=== PATIENT | male | born 1940 | race Caucasian/White ===

== ENCOUNTER 2017-03-25 15:55 | Inpatient (IN) | payer MEDICARE, SELFPAY ==
[2017-03-25] VITALS (9 sets, daily range): BP systolic 135–142; BP diastolic 56–69; PULSE 57–65; RESP 18–26; TEMP 36.8–38.4; O2SAT 90–98; BMI 25.0; BMI 23.2
--- NOTE | 2017-03-25 16:25 | RAD_ITS ---
STUDY: X-RAY CHEST REASON FOR EXAM: Male, 76 years old. fever, cough TECHNIQUE: Single frontal view of the chest. COMPARISON: December 25, 2012 FINDINGS: Chronic appearing increased interstitial lung markings. There are multiple median sternotomy wires. There is no demonstrated pleural abnormality. Enlarged heart size. Normal mediastinum and teresa. Normal visualized pulmonary arteries. There is atherosclerotic calcification of the aortic arch with tortuosity. There are diffuse degenerative changes of the visualized thoracic spine. There is degenerative osteoarthritis of the bilateral shoulders. There is no demonstrated abnormality of the visualized soft tissue structures of the upper abdomen. RAD/Chest 1 View (Portable) IMPRESSION: There are no acute findings. Electronically Signed: David Bustillos MD at 16:58 EST , Service support ,
--- NOTE | 2017-03-25 16:26 | EKG12_ITS ---
Test Reason : Blood Pressure : / mmHG Vent. Rate : 066 BPM Atrial Rate : 066 BPM P-R Int : 132 ms QRS Dur : 092 ms QT Int : 438 ms P-R-T Axes : -08 050 022 degrees QTc Int : 459 ms Normal sinus rhythm Normal ECG Confirmed by DAWIT CARLOS, TREASURE ([id number]), continuity editor AMADEO RODRIGUEZ ([id number] on 03/28/2017 4:12:51 PM Referred By: VIOLET Confirmed By:TREASURE PASTOR MD
[2017-03-25] MEDS: 0.9% Normal Saline 1,000 ML 150 ML IV (16:33)
[2017-03-25] MEDS: Ibuprofen 400 MG Tablet 800 MG PO (16:33)
[2017-03-25] MEDS: 0.9% Normal Saline 1,000 ML 1000 ML IV (16:33)
[2017-03-25 16:48] LABS: International Normalized Ratio 1.1; Prothrombin Time (Protime)PT. 13.7 SECONDS (11.7-14.9)
[2017-03-25 16:49] LABS: Absolute Lymphocyte Count 0.42 X10^3/ul (0.83-4.51); Absolute Neutrophil Count 6.4 X10^3/uL (2.0-7.7); Hematocrit 39.2 % (40-54); Hemoglobin 13.1 g/dl (13.0-16.5); Lymphocyte # 0.42 X10^3/ul (4.0); Lymphocyte % 5.6 % (19-41); Mean Corp Hgb Conc 33.4 g/gl (32-36); Mean Corpuscular Hgb 31.8 pg (27.0-32.0); Mean Corpuscular Volume 95.1 fL (80-94); Mean Platelet Vol. 10.6 fl (6.2-12.0); Monocyte# 0.71 X10^3/uL; Monocyte% 9.5 % (0-10); Neutrophil # 6.37 X10^3/uL (2.7-7.7); Neutrophil % 84.8 % (47-70); Partial Thromboplast Time 34.8 Seconds (24.1-36.2); Platelet Count 80 K/mm3 (150-450); RBC Distribution Width CV 13.1 % (11.6-14.6); RBC Distribution Width SD 45.8 fl (35.1-43.9); Red Blood Count 4.12 M/mm3 (4.6-6.2); White Blood Count 7.5 K/mm3 (4.4-11.0)
[2017-03-25 16:53] LABS: Differential Indicated SCAN CRITERIA MET; Lactic Acid 0.7 mmol/L (0.4-2.0); POSITIVE COUNT NO; POSITIVE DIFFERENTIAL YES; POSITIVE MORPHOLOGY NO
[2017-03-25 16:55] LABS: ALB/GLOB Ratio 0.9 RATIO (0.9-2.4); AST(SGOT) 62 U/L (15-37); Alanine Aminotransfer ALT/SGPT 35 U/L (12-78); Albumin, Serum 2.7 g/dL (3.4-5.0); Alkaline Phosphatase 44 U/L (45-117); Anion Gap 7 (5-15); BUN 25 mg/dL (7-18); BUN/Creat Ratio 36.1 RATIO (10-20); Calcium,Total 7.4 mg/dL (8.5-10.1); Chloride 108 mmol/L (98-107); Creatinine, Serum 0.69 mg/dL (0.70-1.30); EST Glomerular Filtration Rate 118 mL/min (>60); Est Glom Filt Rate - Afr Amer 143 mL/min (>60); Glucose 107 mg/dL (70-110); Lipase 67 U/L (73-393); Potassium 3.7 mmol/L (3.5-5.1); Protein, Total 5.7 g/dL (6.4-8.2); Sodium Level 140 mmol/L (136-145)
--- NOTE | 2017-03-25 17:27 | PCM.HP.STD ---
Problem List (1) Suspected Viral Influenza Status: Acute (2) CAD (coronary artery disease) Status: Chronic Qualifiers: Coronary Disease-Associated Artery/Lesion type: unspecified vessel or lesion type [place] vs. transplanted heart: unspecified whether [place] or transplanted heart Associated angina: angina presence unspecified Qualified Code(s): I25.10 - Atherosclerotic heart disease of [place] coronary artery without angina pectoris (3) CABG 2006 Status: Chronic Comment: CABG x 5, 1 graft failure. (4) HTN (hypertension) Status: Chronic Qualifiers: Hypertension type: essential hypertension Qualified Code(s): I10 - Essential (primary) hypertension (5) Hyperlipemia Status: Chronic Qualifiers: Hyperlipidemia type: unspecified Qualified Code(s): E78.5 - Hyperlipidemia, unspecified History of Present Illness Date of Admission: 03/25/17 Chief Complaint: Cough, congestion, rhinorrhea, dyspnea, fever, chills. The patient is a 76 y/o M w/ PMHx: Parkinson's disease, HTN, HLD, CAD s/p CABG x 5 with single graft failure hx who presents to the [facility] ED on 03/25/17 with history of ongoing, progressively worsening mildly productive cough, dyspnea, congestion, rhinorrhea, sore throat, myalgias and arthralgias with subjective fever and chills x ~ 1 week. He has become progressively more weak and debilitated with unable to assist in caring for him safely at home. In the ED work-up included T 101.2, HR 60s, BP 142/64, RR 18, 95% on 2L NC, CBC w/ WBC 7.5, Hgb 13.1, Plts 80 without marked shift, normal coags, BMP w/ Chl 108, BUN/Cr 25/0.69, LA 0.7, trop 0.06, CXR without acute process, influenza rapid negative but pending PCR respiratory viral panel given high suspicion upon ED presentation. In the ED patient administered NS, motrin and duoneb. Past Medical History Past Medical History (Chronic Problems): Chronic Problems CAD (coronary artery disease) (Chronic) CABG 2007 (Chronic) CABG x 5, 1 graft failure. HTN (hypertension) (Chronic) Hyperlipemia (Chronic) Allergies atorvastatin calcium [From Lipitor] Allergy (Severe, Verified 03/25/17 16:00) Pain in joints Sulfa (Sulfonamide Antibiotics) Allergy (Severe, Verified 03/25/17 16:00) Rash ampicillin Allergy (Verified 03/25/17 16:00) Rash SULFA Allergy (Uncoded 03/25/17 16:00) Rash Home Medications: Ambulatory Orders Medication Instructions Recorded Acetaminophen [Tylenol Tablet] 325 mg PO DAILY 12/25/12 Aspirin E.C. [Ecotrin] 81 mg PO DAILY 12/25/12 Latanoprost 0.005% [Xalatan 1 drop EACHEYE QHS PRN 12/25/12 Opthalmic] Multivit-Min/FA/Lycopene/Lut 1 tab PO DAILY 12/25/12 [Centrum Silver Tablet] Carbidopa/Levodopa [Sinemet 03/25/17] Surgical History: adenoidectomy, coronary bypass surgery - X5, herniorrhaphy, tonsillectomy, - - Eye surgery for glaucoma, laser surgery. Psychiatric History: No pertinent psych hx Lives: Spouse/ Significant Other, With Family Smoking Status: Former smoker - Tobacco cigarette usage in college, quit 60 years prior. Tobacco Use: Non-smoker Alcohol: Occasional Drugs: None - *Family History Maternal History Items: Heart Disease - Mother w/ history of CHF. Paternal History Items: - - Father with history of parkinson's disease as well as CAD s/p CABG. Review of Systems Constitutional: Reports: Anorexia, Chills, Fever, Malaise, Weakness, Fatigue. Denies: Weight Change HEENT: Reports: Nasal Congestion, Post Nasal Drip, Sinus Congestion, Sinus Drainage, Sore Throat. Denies: Head Aches Cardiovascular: Denies: Chest Pain, Palpitations Respiratory: Reports: Cough, Shortness of Breath, Shortness of breath at rest, Shortness of breath upon exertion, Sputum production Gastrointestinal: Denies: Abdominal Pain, Nausea, Vomiting Genitourinary: Denies: Dysuria Musculoskeletal: Denies: Joint Pain, Joint Tenderness Skin: Denies: Rash, Wounds Neurological: Reports: Balance problems - Parkinson's disease.. Denies: Focal weakness, Numbness, Tingling Psychiatric: Denies: Anxiety, Depression, Homicidal Ideations, Suicidal Ideations Hematologic/ Lymphatic: Denies: Easy Bruising, Easy Bleeding VTE Information - Inpt Only VTE Present on Admission: No VTE Mechan Device Prophylaxis: SCD's VTE Pharm Prophylaxis ordered?: Yes Patient Problems: Active and Suspected Problems Suspected Viral Influenza (Acute) Subjective: Seated upright in the ED bed, ill appearing, fatigued, flushed. Objective: Physical Examination: General: awake, alert, oriented x 3 and cooperative, seated upright in the ED bed, fatigued, ill appearing. Skin: normal color, turgor, no icterus, cyanosis. HEENT: AT/NC, EOMI, PERRLA, dry MM, no carotid bruits or JVD noted. Lungs: Diffusely coarse, > mid to bases BL, diminished, occasional expiratory wheeze. Heart: Regular rate and rhythm; no gallop, rub audible. Abdomen: soft, NTTP, ND, normal BS, no HSM. Extremities: no cyanosis, clubbing, or edema. Neurological: patient awake, alert, oriented x 3; cognitive function intact; pupils equally reactive to light and accomodation; cranial nerves II-XII grossly normal, moving all 4 extremities, pill rolling tremor present, strength severely globally decreased. Psychiatric: affect appears flat, fatigued, no acute evidence of depressive or anxiety feelings. - Physical Exam Vital Signs Temp Pulse Resp BP Pulse Ox 101.2 F H 60 18 142/64 H 95 03/25/17 15:57 03/25/17 17:05 03/25/17 17:05 03/25/17 17:05 03/25/17 17:05 Oxygen Flow Rate 2 Oxygen Delivery Method Nasal Cannula Weight: 165 lb Body Mass Index (BMI) 25.0 Microbiology Past 72 Hours 03/25/17 16:45 Influenza Types A,B Direct FA (SERINA) - Final Mucosa - Nose Laboratory Tests Past 24 Hrs 03/25/17 03/25/17 03/25/17 16:15 16:15 16:15 WBC 7.5 RBC 4.12 L Hgb 13.1 Hct 39.2 L MCV 95.1 H MCH 31.8 MCHC 33.4 RDW 13.1 RDW Differential 45.8 H Plt Count 80 L MPV 10.6 Immature Gran % (Auto) 0.100 Neut % (Auto) 84.8 H Lymph % (Auto) 5.6 L [place] % (Auto) 9.5 Eos % (Auto) 0.0 Baso % (Auto) 0.0 Absolute Neuts (auto) 6.4 Absolute Lymphs (auto) 0.42 L Total Counted Not Reportable Differential Comment PT 13.7 INR 1.1 APTT 34.8 Sodium 140 Potassium 3.7 Chloride 108 H Carbon Dioxide 25.0 Anion Gap 7 BUN 25 H Creatinine 0.69 L Estim Creat Clear Calc 60.80 Est GFR (MDRD) Af Amer 143 Est GFR (MDRD) Non-Af 118 BUN/Creatinine Ratio 36.1 H Glucose 107 Lactic Acid Calcium 7.4 L Total Bilirubin 0.60 AST 62 H ALT 35 Alkaline Phosphatase 44 L Troponin I 0.06 Total Protein 5.7 L Albumin 2.7 L Globulin 3.0 Albumin/Globulin Ratio 0.9 Lipase 67 L 03/25/17 16:15 WBC RBC Hgb Hct MCV MCH MCHC RDW RDW Differential Plt Count MPV Immature Gran % (Auto) Neut % (Auto) Lymph % (Auto) [place] % (Auto) Eos % (Auto) Baso % (Auto) Absolute Neuts (auto) Absolute Lymphs (auto) Total Counted Differential Comment PT INR APTT Sodium Potassium Chloride Carbon Dioxide Anion Gap BUN Creatinine Estim Creat Clear Calc Est GFR (MDRD) Af Amer Est GFR (MDRD) Non-Af BUN/Creatinine Ratio Glucose Lactic Acid 0.7 Calcium Total Bilirubin AST ALT Alkaline Phosphatase Troponin I Total Protein Albumin Globulin Albumin/Globulin Ratio Lipase Assessment/Plan Active and Suspected Problems Suspected Viral Influenza (Acute) The patient is a 76 y/o M w/ PMHx: Parkinson's disease, HTN, HLD, CAD s/p CABG x 5 with single graft failure hx who presents to the [facility] ED on 03/25/17 with history of ongoing, progressively worsening mildly productive cough, dyspnea, congestion, rhinorrhea, sore throat, myalgias and arthralgias with subjective fever and chills x ~ 1 week. He has become progressively more weak and debilitated with unable to assist in caring for him safely at home. (1) Suspected Viral Influenza w/ ? Post Viral Clinical PNA: CXR in the ED w/ no acute findings but examination severe, coarse, apparent flu-like illness. Will admit to [facility], maintain on oxygen with wean as tolerated to room air, continue ATC duonebs, PRN albuterol, given severity of examination and possible clinical PNA, will initiate Rocephin and Azithromycin, HOB, IS parameters w/ pending sputum cultures and urine antigens. Will request Bld cx x 2. UA requested, pending. PT, OT, CM for discharge planning. As noted, will hydrate and will repeat CXR in AM. (2) Parkinson's disease: Continue home sinemet regimen, fall precautions, PT and OT for discharge planning. (3) Hypertension: Not on regimen, BP mildly elevated in the ED, trend, add regimen if needed, PRN hydralazine. (4) Hyperlipidemia: Statin allergy. (5) CAD: s/p CABG x 5 with single graft failure hx, maintain on ASA, statin allergy, not on BB. (6) DVT Prophylaxis: SCDs, heparin. (7) CODE status: Discussed CODE status at length including difference between FULL code, DNR-CCA and DNR-CC status. He notes he has a living will which specifies specific situations, including following aggressive measures thus for now will place as FULL CODE. Advanced Care Planning Face to Face Time: 17 minutes. Code Visit Inpatient E&M: 31223 Init Hosp L3 Procedures: 94708 Advncd Care Plan 30 Min
[2017-03-25 17:36] LABS: Bacteria 0 SEEN /hpf (None Seen); Mucous, Urine 0 SEEN /hpf (<or=2+); Squamous Epithelial Cells - UA 0 SEEN /hpf (0-5); White Blood Cells 0 SEEN /hpf (0-5)
--- NOTE | 2017-03-25 17:37 | HP.PCM_ITS ---
Problem List (1) Suspected Viral Influenza Status: Acute (2) CAD (coronary artery disease) Status: Chronic Qualifiers: Coronary Disease-Associated Artery/Lesion type: unspecified vessel or lesion type [place] vs. transplanted heart: unspecified whether [place] or transplanted heart Associated angina: angina presence unspecified Qualified Code(s): I25.10 - Atherosclerotic heart disease of [place] coronary artery without angina pectoris (3) CABG 2006 Status: Chronic Comment: CABG x 5, 1 graft failure. (4) HTN (hypertension) Status: Chronic Qualifiers: Hypertension type: essential hypertension Qualified Code(s): I10 - Essential (primary) hypertension (5) Hyperlipemia Status: Chronic Qualifiers: Hyperlipidemia type: unspecified Qualified Code(s): E78.5 - Hyperlipidemia , unspecified History of Present Illness Date of Admission: 03/25/17 Chief Complaint: Cough, congestion, rhinorrhea, dyspnea, fever, chills. The patient is a 76 y/o M w/ PMHx: Parkinson's disease, HTN, HLD, CAD s/p CABG x 5 with single graft failure hx who presents to the [facility] ED on 03/25/17 with history of ongoing, progressively worsening mildly productive cough, dyspnea, congestion, rhinorrhea, sore throat, myalgias and arthralgias with subjective fever and chills x ~ 1 week. He has become progressively more weak and debilitated with unable to assist in caring for him safely at home. In the ED work-up included T 101.2, HR 60s, BP 142/64, RR 18, 95% on 2L NC, CBC w/ WBC 7.5, Hgb 13.1, Plts 80 without marked shift, normal coags, BMP w/ Chl 108, BUN/ Cr 25/0.69, LA 0.7, trop 0.06, CXR without acute process, influenza rapid negative but pending PCR respiratory viral panel given high suspicion upon ED presentation. In the ED patient administered NS, motrin and duoneb. Past Medical History Past Medical History (Chronic Problems): Chronic Problems CAD (coronary artery disease) (Chronic) CABG 2007 (Chronic) CABG x 5, 1 graft failure. HTN (hypertension) (Chronic) Hyperlipemia (Chronic) Allergies atorvastatin calcium [From Lipitor] Allergy (Severe, Verified 03/25/17 16:00) Pain in joints Sulfa (Sulfonamide Antibiotics) Allergy (Severe, Verified 03/25/17 16:00) Rash ampicillin Allergy (Verified 03/25/17 16:00) Rash SULFA Allergy (Uncoded 03/25/17 16:00) Rash Home Medications: Ambulatory Orders Medication Instructions Recorded Acetaminophen [Tylenol Tablet] 325 mg PO DAILY 12/25/12 Aspirin E.C. [Ecotrin] 81 mg PO DAILY 12/25/12 Latanoprost 0.005% [Xalatan 1 drop EACHEYE QHS PRN 12/25/12 Opthalmic] Multivit-Min/FA/Lycopene/Lut 1 tab PO DAILY 12/25/12 [Centrum Silver Tablet] Carbidopa/Levodopa [Sinemet 03/25/17] Surgical History: adenoidectomy, coronary bypass surgery - X5, herniorrhaphy, tonsillectomy, - - Eye surgery for glaucoma, laser surgery. Psychiatric History: No pertinent psych hx Lives: Spouse/ Significant Other, With Family Smoking Status: Former smoker - Tobacco cigarette usage in college, quit 60 years prior. Tobacco Use: Non-smoker Alcohol: Occasional Drugs: None - *Family History Maternal History Items: Heart Disease - Mother w/ history of CHF. Paternal History Items: - - Father with history of parkinson's disease as well as CAD s/ p CABG. Review of Systems Constitutional: Reports: Anorexia, Chills, Fever, Malaise, Weakness, Fatigue. Denies: Weight Change HEENT: Reports: Nasal Congestion, Post Nasal Drip, Sinus Congestion, Sinus Drainage, Sore Throat. Denies: Head Aches Cardiovascular: Denies: Chest Pain, Palpitations Respiratory: Reports: Cough, Shortness of Breath, Shortness of breath at rest, Shortness of breath upon exertion, Sputum production Gastrointestinal: Denies: Abdominal Pain, Nausea, Vomiting Genitourinary: Denies: Dysuria Musculoskeletal: Denies: Joint Pain, Joint Tenderness Skin: Denies: Rash, Wounds Neurological: Reports: Balance problems - Parkinson's disease.. Denies: Focal weakness, Numbness, Tingling Psychiatric: Denies: Anxiety, Depression, Homicidal Ideations, Suicidal Ideations Hematologic/ Lymphatic: Denies: Easy Bruising, Easy Bleeding VTE Information - Inpt Only VTE Present on Admission: No VTE Mechan Device Prophylaxis: SCD's VTE Pharm Prophylaxis ordered?: Yes Patient Problems: Active and Suspected Problems Suspected Viral Influenza (Acute) Subjective: Seated upright in the ED bed, ill appearing, fatigued, flushed. Objective: Physical Examination: General: awake, alert, oriented x 3 and cooperative, seated upright in the ED bed, fatigued, ill appearing. Skin: normal color, turgor, no icterus, cyanosis. HEENT: AT/NC, EOMI, PERRLA, dry MM, no carotid bruits or JVD noted. Lungs: Diffusely coarse, > mid to bases BL, diminished, occasional expiratory wheeze. Heart: Regular rate and rhythm; no gallop, rub audible. Abdomen: soft, NTTP, ND, normal BS, no HSM. Extremities: no cyanosis, clubbing, or edema. Neurological: patient awake, alert, oriented x 3; cognitive function intact; pupils equally reactive to light and accomodation; cranial nerves II-XII grossly normal, moving all 4 extremities, pill rolling tremor present, strength severely globally decreased. Psychiatric: affect appears flat, fatigued, no acute evidence of depressive or anxiety feelings. - Physical Exam Vital Signs Temp Pulse Resp BP Pulse Ox 101.2 F H 60 18 142/64 H 95 03/25/17 15:57 03/25/17 17:05 03/25/17 17:05 03/25/17 17:05 03/25/17 17:05 Oxygen Flow Rate 2 Oxygen Delivery Method Nasal Cannula Weight: 165 lb Body Mass Index (BMI) 25.0 Microbiology Past 72 Hours 03/25/17 16:45 Influenza Types A,B Direct FA (SERINA) - Final Mucosa - Nose Laboratory Tests Past 24 Hrs 03/25/17 03/25/17 03/25/17 16:15 16:15 16:15 WBC 7.5 RBC 4.12 L Hgb 13.1 Hct 39.2 L MCV 95.1 H MCH 31.8 MCHC 33.4 RDW 13.1 RDW Differential 45.8 H Plt Count 80 L MPV 10.6 Immature Gran % (Auto) 0.100 Neut % (Auto) 84.8 H Lymph % (Auto) 5.6 L [place] % (Auto) 9.5 Eos % (Auto) 0.0 Baso % (Auto) 0.0 Absolute Neuts (auto) 6.4 Absolute Lymphs (auto) 0.42 L Total Counted Not Reportable Differential Comment PT 13.7 INR 1.1 APTT 34.8 Sodium 140 Potassium 3.7 Chloride 108 H Carbon Dioxide 25.0 Anion Gap 7 BUN 25 H Creatinine 0.69 L Estim Creat Clear Calc 60.80 Est GFR (MDRD) Af Amer 143 Est GFR (MDRD) Non-Af 118 BUN/Creatinine Ratio 36.1 H Glucose 107 Lactic Acid Calcium 7.4 L Total Bilirubin 0.60 AST 62 H ALT 35 Alkaline Phosphatase 44 L Troponin I 0.06 Total Protein 5.7 L Albumin 2.7 L Globulin 3.0 Albumin/Globulin Ratio 0.9 Lipase 67 L 03/25/17 16:15 WBC RBC Hgb Hct MCV MCH MCHC RDW RDW Differential Plt Count MPV Immature Gran % (Auto) Neut % (Auto) Lymph % (Auto) [place] % (Auto) Eos % (Auto) Baso % (Auto) Absolute Neuts (auto) Absolute Lymphs (auto) Total Counted Differential Comment PT INR APTT Sodium Potassium Chloride Carbon Dioxide Anion Gap BUN Creatinine Estim Creat Clear Calc Est GFR (MDRD) Af Amer Est GFR (MDRD) Non-Af BUN/Creatinine Ratio Glucose Lactic Acid 0.7 Calcium Total Bilirubin AST ALT Alkaline Phosphatase Troponin I Total Protein Albumin Globulin Albumin/Globulin Ratio Lipase Assessment/Plan Active and Suspected Problems Suspected Viral Influenza (Acute) The patient is a 76 y/o M w/ PMHx: Parkinson's disease, HTN, HLD, CAD s/p CABG x 5 with single graft failure hx who presents to the [facility] ED on 03/25/17 with history of ongoing, progressively worsening mildly productive cough, dyspnea, congestion, rhinorrhea, sore throat, myalgias and arthralgias with subjective fever and chills x ~ 1 week. He has become progressively more weak and debilitated with unable to assist in caring for him safely at home. (1) Suspected Viral Influenza w/ ? Post Viral Clinical PNA: CXR in the ED w/ no acute findings but examination severe, coarse, apparent flu-like illness. Will admit to MS, maintain on oxygen with wean as tolerated to room air, continue ATC duonebs, PRN albuterol, given severity of examination and possible clinical PNA, will initiate Rocephin and Azithromycin, HOB, IS parameters w/ pending sputum cultures and urine antigens. Will request Bld cx x 2. UA requested, pending. PT, OT, CM for discharge planning. As noted, will hydrate and will repeat CXR in AM. (2) Parkinson's disease: Continue home sinemet regimen, fall precautions, PT and OT for discharge planning. (3) Hypertension: Not on regimen, BP mildly elevated in the ED, trend, add regimen if needed, PRN hydralazine. (4) Hyperlipidemia: Statin allergy. (5) CAD: s/p CABG x 5 with single graft failure hx, maintain on ASA, statin allergy, not on BB. (6) DVT Prophylaxis: SCDs, heparin. (7) CODE status: Discussed CODE status at length including difference between FULL code, DNR-CCA and DNR-CC status. He notes he has a living will which specifies specific situations, including following aggressive measures thus for now will place as FULL CODE. Advanced Care Planning Face to Face Time: 17 minutes. Code Visit Inpatient E&M: 01762 Init Hosp L3 Procedures: [id number] Advncd Care Plan 30 Min
[2017-03-25 17:38] LABS: Color, Urine Yellow (Yellow); Glucose, Dipstick Normal (Normal); Ketone-Dipstick 15 mg/dl (Negative); Leukocyte Esterase-Dipstick 25 /ul (Negative); Nitrite-Dipstick Negative (Negative); Occult Blood-Urine 25 /ul (Negative); Protein-Dipstick 30 mg/dl (Negative); Urine Bilirubin Dipstick Negative (Negative); Urine Clarity Clear (Clear); Urine Urobilinogen 1 mg/dl (Normal)
[2017-03-25] MEDS: Ipratropium/Albuterol Sulfate 3 ML AMPUL.NEB INHALATION ×2 (17:41→23:07)
[2017-03-25 17:45] LABS: Red Blood Cells-Urine 0-5 SEEN /hpf (0-5)
[2017-03-25 20:21] LABS: Magnesium 2.1 mg/dL (1.8-2.4)
[2017-03-25] MEDS: Ceftriaxone 1 GM/50 ML BAG IV (21:07)
[2017-03-25] MEDS: 0.9% Normal Saline 1,000 ML 100 ML IV (21:10)
[2017-03-25] MEDS: Famotidine 20 MG Tablet PO (21:11)
[2017-03-25] MEDS: guaiFENesin 1,200 MG Tablet 1200 MG PO (21:11)
[2017-03-25] MEDS: Heparin Injection 5,000 UNITS/ML Syringe 5000 UNITS SC (21:14)
--- NOTE | 2017-03-25 23:52 | ED.VISSUMM ---
- ER Visit Summary Date of Service: 03/25/17 Chief Complaint: Fever and shaking History of Present Illness: The patient is a 76 M who per his has been sick for a week. Noted subjective fever chills and sweats. Rhinorrhea and cough. Globally weak. states it is extremely hard for him to get up and go to the bathroom. She was able to get him there once today but is extremely difficult. Patient was noted to have increased shaking today took extra Parkinson's meds. states she is sick with similar symptoms and has not had any fever. They do not have a working thermometer to check. Physical Examination: Febrile 101.2 heart rate 65 respirations are 26 pulse ox 92% on room air blood pressure 140/59 Gen: Well-nourished well-developed Head: Normocephalic atraumatic Eyes: Perrl EOMI ENT: TMs clear no rhinorrhea dry mucous membranes Neck: Supple no lymphadenopathy no JVD nontender CVS: Regular rate rhythm no murmurs normal S1-S2 Respiratory: No distress rhonchorous lung sounds bilaterally chest nontender Abdomen: Soft nontender nondistended normal bowel sounds no masses Back: Nontender Extremity: Nontender no edema Skin: Normal color no rash Neuro: alert orientated ?3 CN II-XII intact resting tremor Psych: Normal affect normal mood Test Results: Basic labs were obtained which essentially negative. Influenza negative. Chest x-ray negative. Emergency Department Course and Treatment: Patient received a DuoNeb IV fluids of Motrin. Our plan is admission. Impression: 1. Acute febrile illness 2. Dehydration This note was generated with [employer] dictation software. It may contain incorrect words, spelling, and punctuation that were not noted in review of the chart prior to signing ED Disposition - Plan for ED Patient: Disposition: Acute Care Hospital [facility] Chief Complaint: General Illness
--- NOTE | 2017-03-25 23:57 | ED.DCSUM_ITS ---
- ER Visit Summary Date of Service: 03/25/17 Chief Complaint: Fever and shaking History of Present Illness: The patient is a 76 M who per his has been sick for a week. Noted subjective fever chills and sweats. Rhinorrhea and cough. Globally weak. states it is extremely hard for him to get up and go to the bathroom. She was able to get him there once today but is extremely difficult. Patient was noted to have increased shaking today took extra Parkinson's meds. states she is sick with similar symptoms and has not had any fever. They do not have a working thermometer to check. Physical Examination: Febrile 101.2 heart rate 65 respirations are 26 pulse ox 92% on room air blood pressure 140/59 Gen: Well-nourished well-developed Head: Normocephalic atraumatic Eyes: Perrl EOMI ENT: TMs clear no rhinorrhea dry mucous membranes Neck: Supple no lymphadenopathy no JVD nontender CVS: Regular rate rhythm no murmurs normal S1-S2 Respiratory: No distress rhonchorous lung sounds bilaterally chest nontender Abdomen: Soft nontender nondistended normal bowel sounds no masses Back: Nontender Extremity: Nontender no edema Skin: Normal color no rash Neuro: alert orientated ?3 CN II-XII intact resting tremor Psych: Normal affect normal mood Test Results: Basic labs were obtained which essentially negative. Influenza negative. Chest x-ray negative. Emergency Department Course and Treatment: Patient received a DuoNeb IV fluids of Motrin. Our plan is admission. Impression: 1. Acute febrile illness 2. Dehydration This note was generated with [employer] dictation software. It may contain incorrect words, spelling, and punctuation that were not noted in review of the chart prior to signing ED Disposition - Plan for ED Patient: Disposition: Acute Care Hospital [facility] Chief Complaint: General Illness
[2017-03-26] VITALS (10 sets, daily range): BP systolic 125–149; BP diastolic 56–67; PULSE 57–72; RESP 16–20; TEMP 36.2–36.9; O2SAT 97–100
[2017-03-26] MEDS: Carbidopa/Levodopa 25/100 Tablet PO ×4 (04:12→17:44)
--- NOTE | 2017-03-26 05:59 | RAD_ITS ---
STUDY: X-RAY CHEST REASON FOR EXAM: Male, 76 years old. Shortness of breath, suspected viral influenza. TECHNIQUE: PA and lateral chest. COMPARISON: 03/25/2017. 12/25/2012. FINDINGS: Lower lobe airspace opacities best appreciated on the lateral view. There are now subtle perihilar opacities which may represent bronchial thickening which can be associated with viral pneumonitis. No effusions. No pneumothorax. Normal size heart. Normal mediastinum and teresa. Normal visualized pulmonary arteries. Normal visualized aortic arch and descending thoracic aorta. Wires are present. Normal visualized thoracic spine. Normal visualized ribs, clavicles, and shoulders. There is no demonstrated abnormality of the visualized soft tissue structures of the upper abdomen. RAD/Chest PA and Lateral IMPRESSION: Lower lobe pneumonia best seen on lateral view and difficult localize on the frontal view. Correlate clinically. Peribronchial thickening suggestive of viral pneumonitis. Electronically Signed: Juanito Romo MD at 7:45 EST , Service support ,
[2017-03-26 06:04] LABS: Absolute Lymphocyte Count 0.69 X10^3/ul (0.83-4.51); Absolute Neutrophil Count 5.9 X10^3/uL (2.0-7.7); Basophil# 0.01 X10^3/uL; Basophil% 0.1 % (0-1); Hematocrit 38.4 % (40-54); Hemoglobin 12.9 g/dl (13.0-16.5); Lymphocyte # 0.69 X10^3/ul (4.0); Lymphocyte % 9.6 % (19-41); Mean Corp Hgb Conc 33.6 g/gl (32-36); Mean Corpuscular Hgb 32.2 pg (27.0-32.0); Mean Corpuscular Volume 95.8 fL (80-94); Mean Platelet Vol. 10.6 fl (6.2-12.0); Monocyte# 0.62 X10^3/uL; Monocyte% 8.6 % (0-10); Neutrophil # 5.86 X10^3/uL (2.7-7.7); Neutrophil % 81.4 % (47-70); Platelet Count 81 K/mm3 (150-450); RBC Distribution Width SD 44.2 fl (35.1-43.9); Red Blood Count 4.01 M/mm3 (4.6-6.2); White Blood Count 7.2 K/mm3 (4.4-11.0)
[2017-03-26 06:12] LABS: Anion Gap 7 (5-15); BUN 20 mg/dL (7-18); BUN/Creat Ratio 33.7 RATIO (10-20); Calcium,Total 7.4 mg/dL (8.5-10.1); Chloride 107 mmol/L (98-107); Creatinine, Serum 0.59 mg/dL (0.70-1.30); EST Glomerular Filtration Rate 141 mL/min (>60); Est Glom Filt Rate - Afr Amer 170 mL/min (>60); Estimated Creatinine Clearance 62.84 ml/min; Glucose 96 mg/dL (70-110); Potassium 3.3 mmol/L (3.5-5.1); Sodium Level 140 mmol/L (136-145)
[2017-03-26 06:22] LABS: POSITIVE COUNT NO; POSITIVE DIFFERENTIAL NO; POSITIVE MORPHOLOGY NO
[2017-03-26] MEDS: Ipratropium/Albuterol Sulfate 3 ML AMPUL.NEB INHALATION ×5 (07:19→23:06)
[2017-03-26] MEDS: Aspirin 81 MG TAB.CHEW PO (10:14)
[2017-03-26] MEDS: Multivitamins,Therapeutic Tablet 1 TABLET PO (10:15)
[2017-03-26] MEDS: Ceftriaxone 1 GM/50 ML BAG IV (10:15)
[2017-03-26] MEDS: guaiFENesin 1,200 MG Tablet 1200 MG PO ×2 (10:15→22:13)
[2017-03-26] MEDS: Famotidine 20 MG Tablet PO ×2 (10:15→22:13)
--- NOTE | 2017-03-26 10:47 | PCM.PN.HOSP ---
Patient Problems: Active and Suspected Problems Suspected Viral Influenza (Acute) Subjective: CC: Shortness of breath and cough He is a 76-year-old male who presented with shortness of breath and cough as well as upper respiratory tract symptoms, his influenza studies is positive for influenza A, chest x-ray done today shows left lobe infiltrate consistent with pneumonia. he denies any fever or chills today. Vitals/I&O's: Vital Signs Temp Pulse Resp BP Pulse Ox 97.8 F 63 20 H 134/56 H 100 03/26/17 10:33 03/26/17 10:33 03/26/17 10:33 03/26/17 10:33 03/26/17 10:33 Oxygen Flow Rate 1 Oxygen Delivery Method Room Air Weight: 71.3 kg Body Mass Index (BMI) 23.2 Intake and Output for Last 24 Hours 03/24/17 03/25/17 03/26/17 23:59 23:59 23:59 Intake Total 922 / 922 Output Total 500 / 500 Balance 422 / 422 General: Alert, Oriented x3 Neck: Supple, No JVD Microbiology Past 72 Hours 03/25/17 17:40 Mucosa - Nasopharyngeal Respiratory Panel (PCR) - Preliminary Influenzae A Laboratory Results 03/25/17 19:55: Magnesium 2.1 03/26/17 05:30: WBC 7.2, RBC 4.01 L, Hgb 12.9 L, Hct 38.4 L, MCV 95.8 H, MCH 32.2 H, MCHC 33.6, RDW 13.0, RDW Differential 44.2 H, Plt Count 81 L, MPV 10.6, Immature Gran % (Auto) 0.300, Neut % (Auto) 81.4 H, Lymph % (Auto) 9.6 L, Camp % (Auto) 8.6, Eos % (Auto) 0.0, Baso % (Auto) 0.1, Absolute Neuts (auto) 5.9, Absolute Lymphs (auto) 0.69 L, Total Counted Not Reportable 03/26/17 05:30: Sodium 140, Potassium 3.3 L, Chloride 107, Carbon Dioxide 26.0, Anion Gap 7, BUN 20 H, Creatinine 0.59 L, Estim Creat Clear Calc 62.84, Est GFR (MDRD) Af Amer 170, Est GFR (MDRD) Non-Af 141, BUN/Creatinine Ratio 33.7 H, Glucose 96, Calcium 7.4 L Current Medications Acetaminophen (Tylenol) 650 mg PO Q6H PRN PRN PRN Reason: Mild Pain (scale 0-3)/T>100.7 Al Hydroxide/Mg Hydroxide (Mylanta Ii) 30 ml PO Q6H PRN PRN PRN Reason: Gastric burning Albuterol Sulfate (Ventolin Aerosols) 2.5 mg INHALATION Q2H PRN PRN PRN Reason: SHORTNESS OF BREATH Albuterol/Ipratropium (Duoneb) 3 ml INHALATION Q4H.RT [facility] Last Admin: 03/26/17 07:19 Dose: 3 ml Aspirin (Aspirin, Baby) 81 mg PO DAILY@0800 [facility] Last Admin: 03/26/17 10:14 Dose: 81 mg Carbidopa/Levodopa (Sinemet) 1 tablet PO 0400,0800,1200,1600 [facility] Last Admin: 03/26/17 10:15 Dose: 1 tablet Famotidine (Pepcid) 20 mg PO BID [facility] Last Admin: 03/26/17 10:15 Dose: 20 mg Guaifenesin (Mucinex) 1,200 mg PO BID [facility] Last Admin: 03/26/17 10:15 Dose: 1,200 mg Sodium Chloride () 1,000 mls @ 100 mls/hr IV .Q10H [facility] Last Admin: 03/25/17 21:10 Dose: 100 mls/hr Azithromycin 500 mg/ Dextrose 255 mls @ 250 mls/hr IV Q24 [facility] Stop: 03/27/17 11:02 Last Admin: 03/25/17 21:34 Dose: 250 mls/hr Ceftriaxone Sodium (Rocephin) 1 gm in 50 mls @ 100 mls/hr IV Q24 [facility] Last Admin: 03/26/17 10:15 Dose: 100 mls/hr Latanoprost (Xalatan Opthalmic) 1 drop EACH EYE QHS [facility] Magnesium Hydroxide (Milk Of Magnesia) 30 ml PO DAILY PRN PRN PRN Reason: Constipation Morphine Sulfate (Morphine) 2 - 4 mg IV Q3H PRN PRN PRN Reason: Severe Pain (pain scale 6-10) Morphine Sulfate (Morphine) 1 - 2 mg IV Q4H PRN PRN PRN Reason: Moderate Pain (pain scale 4-5) Multivitamins (Multivitamin) 1 tablet PO DAILY@0800 [facility] Last Admin: 03/26/17 10:15 Dose: 1 tablet Ondansetron HCl (Zofran) 4 mg IV Q8H PRN PRN PRN Reason: NAUSEA Oseltamivir Phosphate (Tamiflu) 75 mg PO BID [facility] Stop: 03/31/17 10:01 Oxycodone HCl (Oxyir) 5 mg PO Q4H PRN PRN PRN Reason: Moderate Pain (pain scale 4-5) Potassium Chloride (K-Dur) 40 meq PO X1 ONE Stop: 03/26/17 10:47 Promethazine HCl (Phenergan (Ll)) 12.5 mg IV Q6H PRN PRN PRN Reason: NAUSEA/VOMITING Sodium Chloride () 5 - 30 ml IV UD PRN PRN Reason: SALINE FLUSH Assessment/Plan Active and Suspected Problems Suspected Viral Influenza (Acute) 1. acute influenza A; started on Tamiflu 2. pneumonia; liley viral but jaye continue antibacterials 3. Thrombocytopenia; we will stop heparin 4. Hypokalemia will replace with oral potassium chloride p.o. 5. Parkinson's disease: Continue home sinemet regimen, fall precautions, PT and OT . 5. CAD: s/p CABG x 5 ; post no symptoms of angina or heart failure. (6) DVT Prophylaxis with SCDs Code Visit Inpatient E&M: 02243 Subs Hosp L2
[2017-03-26] MEDS: Oseltamivir Phosphate 75 MG Capsule PO ×2 (12:31→22:13)
[2017-03-26] MEDS: 0.9% Normal Saline 1,000 ML 100 ML IV ×2 (13:11→22:13)
--- NOTE | 2017-03-26 13:33 | CASEMGMT ---
EDNA VILLA assessment complete. See attached link for full assessment. Disposition Plan: Home Transition planning/Care Coordination Needs: Patient not normally on oxygen; requiring supplemental oxygen at 2 LPM currently. Patient reports his goal is to return home at discharge, and denies need for HHC. EDNA VILLA will continue to follow for transition planning and care coordination needs. EDNA VILLA provided handoff report to Reese Mooney RN CM.
[2017-03-26] MEDS: 0.9% NaCl Peripheral Flush Adult/Peds IV (17:44)
[2017-03-26] MEDS: Latanoprost 0.005% 1 Bottle 1 DRP EACH EYE (22:14)
[2017-03-27] VITALS (7 sets, daily range): BP systolic 125–161; BP diastolic 60–84; PULSE 64–72; RESP 16–20; TEMP 36.8–37.1; O2SAT 92–99
[2017-03-27] MEDS: Carbidopa/Levodopa 25/100 Tablet PO ×4 (04:05→15:45)
[2017-03-27 06:14] LABS: Absolute Lymphocyte Count 0.59 X10^3/ul (0.83-4.51); Absolute Neutrophil Count 3.7 X10^3/uL (2.0-7.7); Basophil# 0.03 X10^3/uL; Basophil% 0.6 % (0-1); Eosinophil# 0.01 X10^3/uL; Eosinophils% 0.2 % (0-5); Hematocrit 37.1 % (40-54); Hemoglobin 12.5 g/dl (13.0-16.5); Lymphocyte # 0.59 X10^3/ul (4.0); Lymphocyte % 12.1 % (19-41); Mean Corp Hgb Conc 33.7 g/gl (32-36); Mean Corpuscular Hgb 32.1 pg (27.0-32.0); Mean Corpuscular Volume 95.1 fL (80-94); Mean Platelet Vol. 10.7 fl (6.2-12.0); Monocyte# 0.51 X10^3/uL; Monocyte% 10.5 % (0-10); Neutrophil % 76.2 % (47-70); Platelet Count 87 K/mm3 (150-450); RBC Distribution Width CV 13.1 % (11.6-14.6); RBC Distribution Width SD 44.1 fl (35.1-43.9); White Blood Count 4.9 K/mm3 (4.4-11.0)
[2017-03-27 06:16] LABS: Differential Indicated SCAN CRITERIA MET; POSITIVE COUNT NO; POSITIVE DIFFERENTIAL YES; POSITIVE MORPHOLOGY NO
[2017-03-27 06:20] LABS: Anion Gap 9 (5-15); BUN 11 mg/dL (7-18); BUN/Creat Ratio 21.4 RATIO (10-20); Calcium,Total 7.4 mg/dL (8.5-10.1); Chloride 108 mmol/L (98-107); Creatinine, Serum 0.51 mg/dL (0.70-1.30); EST Glomerular Filtration Rate 166 mL/min (>60); Est Glom Filt Rate - Afr Amer 201 mL/min (>60); Estimated Creatinine Clearance 62.84 ml/min; Glucose 106 mg/dL (70-110); Potassium 3.6 mmol/L (3.5-5.1); Sodium Level 139 mmol/L (136-145)
[2017-03-27 06:31] LABS: Differential Comment SCANNED
[2017-03-27] MEDS: Ipratropium/Albuterol Sulfate 3 ML AMPUL.NEB INHALATION ×4 (06:57→19:48)
[2017-03-27] MEDS: Multivitamins,Therapeutic Tablet 1 TABLET PO (08:04)
[2017-03-27] MEDS: Aspirin 81 MG TAB.CHEW PO (08:04)
[2017-03-27] MEDS: 0.9% Normal Saline 1,000 ML 100 ML IV (08:04)
[2017-03-27] MEDS: guaiFENesin 1,200 MG Tablet 1200 MG PO ×2 (08:16→20:59)
[2017-03-27] MEDS: Famotidine 20 MG Tablet PO ×2 (08:16→20:59)
[2017-03-27] MEDS: Oseltamivir Phosphate 75 MG Capsule PO ×2 (08:16→20:59)
[2017-03-27] MEDS: Ceftriaxone 1 GM/50 ML BAG IV (09:42)
[2017-03-27] MEDS: 0.9% NaCl Peripheral Flush Adult/Peds IV (15:45)
--- NOTE | 2017-03-27 16:43 | CASEMGMT ---
Dr. Fontana spoke with in room and she is requesting pt go to SNF. SW referral placed and pt will be seen tomorrow for dc planning. Per PT/OT, pt ambulated 225' with contact guard. Sukhdev LUA RN ACM
--- NOTE | 2017-03-27 16:56 | PN_ITS ---
Patient Problems: Active and Suspected Problems Suspected Viral Influenza (Acute) Vitals/I&O's: Vital Signs Temp Pulse Resp BP Pulse Ox 98.3 F 66 18 146/60 H 99 03/27/17 14:38 03/27/17 15:18 03/27/17 15:18 03/27/17 14:38 03/27/17 14:38 Oxygen Flow Rate 2 Oxygen Delivery Method Room Air Weight: 71.3 kg Body Mass Index (BMI) 23.2 Intake and Output for Last 24 Hours 03/25/17 03/26/17 03/27/17 23:59 23:59 23:59 Intake Total 1739 / 1739 700 / 700 Output Total 500 / 500 Balance 1239 / 1239 700 / 700 Microbiology Past 72 Hours 03/25/17 20:45 Sputum, Expectorated/Coughed Gram Stain - Final 03/25/17 20:45 Sputum, Expectorated/Coughed Respiratory Culture - Preliminary Appears to be normal respiratory lino. Further studies to follow. 03/25/17 17:40 Mucosa - Nasopharyngeal Respiratory Panel (PCR) - Final Influenza A (Subtype H3) Laboratory Results 03/27/17 05:34: WBC 4.9, RBC 3.90 L, Hgb 12.5 L, Hct 37.1 L, MCV 95.1 H, MCH 32.1 H, MCHC 33.7, RDW 13.1, RDW Differential 44.1 H, Plt Count 87 L, MPV 10.7, Immature Gran % (Auto) 0.400, Neut % (Auto) 76.2 H, Lymph % (Auto) 12.1 L, [place]ickory % (Auto) 10.5 H, Eos % (Auto) 0.2, Baso % (Auto) 0.6, Absolute Neuts (auto) 3.7 , Absolute Lymphs (auto) 0.59 L, Total Counted Not Reportable, Differential Comment SCANNED 03/27/17 05:34: Sodium 139, Potassium 3.6, Chloride 108 H, Carbon Dioxide 22.0, Anion Gap 9, BUN 11, Creatinine 0.51 L, Estim Creat Clear Calc 62.84, Est GFR ( MDRD) Af Amer 201, Est GFR (MDRD) Non-Af 166, BUN/Creatinine Ratio 21.4 H, Glucose 106, Calcium 7.4 L Current Medications Acetaminophen (Tylenol) 650 mg PO Q6H PRN PRN PRN Reason: Mild Pain (scale 0-3)/T>100.7 Al Hydroxide/Mg Hydroxide (Mylanta Ii) 30 ml PO Q6H PRN PRN PRN Reason: Gastric burning Albuterol Sulfate (Ventolin Aerosols) 2.5 mg INHALATION Q2H PRN PRN PRN Reason: SHORTNESS OF BREATH Albuterol/Ipratropium (Duoneb) 3 ml INHALATION Q4H.RT [facility] Last Admin: 03/27/17 15:18 Dose: 3 ml Aspirin (Aspirin, Baby) 81 mg PO DAILY@0800 [facility] Last Admin: 03/27/17 08:04 Dose: 81 mg Carbidopa/Levodopa (Sinemet) 1 tablet PO 0400,0800,1200,1600 [facility] Last Admin: 03/27/17 15:45 Dose: 1 tablet Famotidine (Pepcid) 20 mg PO BID [facility] Last Admin: 03/27/17 08:16 Dose: 20 mg Guaifenesin (Mucinex) 1,200 mg PO BID [facility] Last Admin: 03/27/17 08:16 Dose: 1,200 mg Sodium Chloride () 1,000 mls @ 100 mls/hr IV .Q10H [facility] Last Admin: 03/27/17 08:04 Dose: 100 mls/hr Ceftriaxone Sodium (Rocephin) 1 gm in 50 mls @ 100 mls/hr IV Q24 [facility] Last Admin: 03/27/17 09:42 Dose: 100 mls/hr Latanoprost (Xalatan Opthalmic) 1 drop EACH EYE QHS [facility] Last Admin: 03/26/17 22:14 Dose: 1 drop Magnesium Hydroxide (Milk Of Magnesia) 30 ml PO DAILY PRN PRN PRN Reason: Constipation Morphine Sulfate (Morphine) 2 - 4 mg IV Q3H PRN PRN PRN Reason: Severe Pain (pain scale 6-10) Morphine Sulfate (Morphine) 1 - 2 mg IV Q4H PRN PRN PRN Reason: Moderate Pain (pain scale 4-5) Multivitamins (Multivitamin) 1 tablet PO DAILY@0800 [facility] Last Admin: 03/27/17 08:04 Dose: 1 tablet Ondansetron HCl (Zofran) 4 mg IV Q8H PRN PRN PRN Reason: NAUSEA Oseltamivir Phosphate (Tamiflu) 75 mg PO BID [facility] Stop: 03/30/17 22:01 Last Admin: 03/27/17 08:16 Dose: 75 mg Oxycodone HCl (Oxyir) 5 mg PO Q4H PRN PRN PRN Reason: Moderate Pain (pain scale 4-5) Promethazine HCl (Phenergan (Ll)) 12.5 mg IV Q6H PRN PRN PRN Reason: NAUSEA/VOMITING Sodium Chloride () 5 - 30 ml IV UD PRN PRN Reason: SALINE FLUSH Last Admin: 03/27/17 15:45 Dose: 10 ml Assessment/Plan Active and Suspected Problems Suspected Viral Influenza (Acute) 1. acute influenza A; on Tamiflu 2. pneumonia; maybe viral but will continue antibacterials 3. Thrombocytopenia;improving 4. Hypokalemia will replace with oral potassium chloride p.o. 5. Parkinson's disease: Continue home Sinemet regimen, fall precautions, PT and OT . 5. CAD: s/p CABG x 5 ; post no symptoms of angina or heart failure. 6.DVT Prophylaxis with SCDs 7. Weakness/deconditioning; continue PT OT as ordered, he will [facility] discharge. Code Visit Inpatient E&M: 81974 Subs Hosp L2
[2017-03-27] MEDS: Latanoprost 0.005% 1 Bottle 1 DRP EACH EYE (21:02)
[2017-03-27] MEDS: Zolpidem Tartrate 5 MG Tablet PO (22:47)
--- NOTE | 2017-03-28 01:05 | NURSING ---
PATIENT DISORIENTED; ONLY ALERT/ORIENTED TO SELF; PATIENT CLIMBED OUT OF BED, WALKED TO CHAIR IN CORNER OF ROOM AND URINATED ON IT; INCONTINENT IN BED.
[2017-03-28 02:30] VITALS: BP 172/76; PULSE 67; RESP 18; TEMP 36.8; O2SAT 94
[2017-03-28] MEDS: Carbidopa/Levodopa 25/100 Tablet PO ×3 (04:24→13:34)
[2017-03-28] MEDS: Ipratropium/Albuterol Sulfate 3 ML AMPUL.NEB INHALATION ×3 (07:13→15:35)
[2017-03-28 07:14] VITALS: PULSE 82; RESP 20; O2SAT 94
[2017-03-28 07:16] LABS: Absolute Lymphocyte Count 0.61 X10^3/ul (0.83-4.51); Basophil# 0.02 X10^3/uL; Basophil% 0.5 % (0-1); Eosinophil# 0.03 X10^3/uL; Eosinophils% 0.7 % (0-5); Hematocrit 39.1 % (40-54); Hemoglobin 13.3 g/dl (13.0-16.5); Lymphocyte # 0.61 X10^3/ul (4.0); Lymphocyte % 14.5 % (19-41); Mean Corpuscular Hgb 32.2 pg (27.0-32.0); Mean Corpuscular Volume 94.7 fL (80-94); Mean Platelet Vol. 10.2 fl (6.2-12.0); Monocyte# 0.57 X10^3/uL; Monocyte% 13.6 % (0-10); Neutrophil # 2.96 X10^3/uL (2.7-7.7); Neutrophil % 70.5 % (47-70); Platelet Count 121 K/mm3 (150-450); RBC Distribution Width CV 13.1 % (11.6-14.6); RBC Distribution Width SD 43.7 fl (35.1-43.9); Red Blood Count 4.13 M/mm3 (4.6-6.2); White Blood Count 4.2 K/mm3 (4.4-11.0)
[2017-03-28 07:17] LABS: Differential Indicated SCAN CRITERIA MET; POSITIVE COUNT NO; POSITIVE DIFFERENTIAL NO; POSITIVE MORPHOLOGY YES
[2017-03-28 07:47] LABS: Anion Gap 7 (5-15); BUN 9 mg/dL (7-18); BUN/Creat Ratio 16.2 RATIO (10-20); Calcium,Total 7.9 mg/dL (8.5-10.1); Chloride 110 mmol/L (98-107); Creatinine, Serum 0.55 mg/dL (0.70-1.30); EST Glomerular Filtration Rate 152 mL/min (>60); Est Glom Filt Rate - Afr Amer 184 mL/min (>60); Estimated Creatinine Clearance 62.84 ml/min; Glucose 104 mg/dL (70-110); Potassium 3.5 mmol/L (3.5-5.1); Sodium Level 142 mmol/L (136-145)
[2017-03-28 09:21] VITALS: BP 114/63; PULSE 73; RESP 20; TEMP 36.7; O2SAT 96
[2017-03-28] MEDS: Multivitamins,Therapeutic Tablet 1 TABLET PO (09:25)
[2017-03-28] MEDS: Famotidine 20 MG Tablet PO (09:25)
[2017-03-28] MEDS: Ceftriaxone 1 GM/50 ML BAG IV (09:25)
[2017-03-28] MEDS: Aspirin 81 MG TAB.CHEW PO (09:25)
[2017-03-28] MEDS: 0.9% NaCl Peripheral Flush Adult/Peds IV (09:25)
[2017-03-28] MEDS: Oseltamivir Phosphate 75 MG Capsule PO (09:25)
[2017-03-28] MEDS: guaiFENesin 1,200 MG Tablet 1200 MG PO (09:25)
[2017-03-28 10:56] VITALS: PULSE 89; RESP 20
--- NOTE | 2017-03-28 11:10 | CASEMGMT ---
Addendum entered by Angela Hyde 03/28/17 14:46: SW spoke w/ in room, explained that pt was accepted by [facility], and will be in touch w/her in regard to when they will be out to see pt. SW spoke w/Taras and Renate from [facility], they went to speak w/pt and however had left. She is back now, SW called Renate w/[facility] and let her know the is back, she will be here in 15-20 minutes. No further social service needs. ZOILA Eli, DRIER ATTENDANT Original Note: SW spoke w/pt and in room in regard to discharge plan. states pt was very confused yesterday and she is concerned about him going home. She states pt did not know where he was, did not know where he lived. SW spoke w/pt, he knows he is in the hospital, knows the street names outside, knows his address and that he lives in a brick house. states this is an improvement from yesterday. SW asked pt about yesterday, pt states he did not know where he was, he called his and she said she knew where he was. states pt has moments of confusion but not like yesterday. SW offered support to . SW explained to pt and that as per PT, pt walked 200 feet with no assist today. SW explained pt would likely not be approved for SNF by insurance, would likely not be approved for rehab either--SW did check w/the director of rehab. Pt is agreeable to go home. expressed concern about keeping pt safe at home, especially at night. She asked what would she do if pt got up at 2am and got in the car to drive and she did not wake up. SW inquired if pt has ever done this before, she states no. SW suggested she put the keys somewhere where she only knows where they are, and put alarms on the door. SW also explained can set up home health and have SW come to the home to make other suggestions, can also give her a list of home health care agencies where she can hire extra help. SW also explained will give her lists of AL and SNF in the area should it be needed in the future. open to information and agreeable to [facility]. SW called [facility], referral made, it is anticipated that they can take pt. SW left lists of private hire home health, AL and SNF in the area in the room as is not in the room at present. SW will let home health know when pt is discharge. ZOILA Eli, DRIER ATTENDANT
--- NOTE | 2017-03-28 11:15 | NURSING ---
sitter removed from room @ 0710.. d/t pt arriving
--- NOTE | 2017-03-28 12:39 | PCM.DC ---
- Discharge Diagnoses Current Active Problems: Current Active and Chronic Problems Suspected Viral Influenza (Acute) You will use the following diet at home:: Regular Discharge Activity: Return to Normal Activity Allergies/Adverse Reactions: Allergies atorvastatin calcium [From Lipitor] Allergy (Severe, Verified 03/25/17 16:00) Pain in joints Sulfa (Sulfonamide Antibiotics) Allergy (Severe, Verified 03/25/17 16:00) Rash amoxicillin Allergy (Verified 03/25/17 20:02) Rash ampicillin Allergy (Verified 03/25/17 16:00) Rash SULFA Allergy (Uncoded 03/25/17 16:00) Rash Medications to take at Discharge Aspirin E.C. [Ecotrin] 81 mg PO DAILY 12/25/12 Latanoprost 0.005% [Xalatan Opthalmic] 1 drop EACHEYE QHS 12/25/12 Multivit-Min/FA/Lycopene/Lut [Centrum Silver Tablet] 1 tab PO DAILY 12/25/12 Carbidopa/Levodopa 25/100 [Sinemet 25/100] 1 tablet PO 4X/DAY 03/25/17 Cefdinir [Omnicef [equiv]] 300 mg PO Q12H #10 cap 03/28/17 Oseltamivir Phosphate [Tamiflu] 75 mg PO BID 3 Days #6 cap 03/28/17 Quetiapine Fumarate [Seroquel] 25 mg PO QHS 03/28/17 The following prescriptions were given: Cefdinir [Omnicef [equiv]] 300 mg PO Q12H #10 cap Oseltamivir Phosphate [Tamiflu] 75 mg PO BID 3 Days #6 cap Primary Care Physician: Fede Villeda MD [Primary Care Provider] - Within 2 Weeks Proposed Discharge Date: 03/28/17
--- NOTE | 2017-03-28 12:41 | PCM.DC.SUM ---
Discharge Date and Diagnosis Date of Admission: 03/25/17 Date of Discharge: 03/28/17 - Primary Discharge Diagnosis Active and Suspected Problems Suspected Viral Influenza (Acute) - Secondary Discharge Diagnosis Chronic Problems CAD (coronary artery disease) (Chronic) CABG 2006 (Chronic) CABG x 5, 1 graft failure. HTN (hypertension) (Chronic) Hyperlipemia (Chronic) Hospital Course and Treatment Summary of Care Provided: He is a 76-year-old male who presented with shortness of breath and cough as well as upper respiratory tract symptoms, his influenza studies was positive for influenza A, chest x-ray showed left lobe infiltrate consistent with pneumonia. He was placed on Tamiflu and IV antibiotics with Rocephin and Zithromax . He improved significantly and he was transitioned to oral Tamiflu and Omnicef and discharged home in a stable condition. He was evaluated by physical and occupational therapy and they recommended home with home health care he will continue physical and outpatient therapy at home. Discharge Diet: No Restrictions Discharge Activity: Return to Normal Activity Home Medications: Medications to take at Discharge Aspirin E.C. [Ecotrin] 81 mg PO DAILY 12/25/12 Latanoprost 0.005% [Xalatan Opthalmic] 1 drop EACHEYE QHS 12/25/12 Multivit-Min/FA/Lycopene/Lut [Centrum Silver Tablet] 1 tab PO DAILY 12/25/12 Carbidopa/Levodopa 25/100 [Sinemet 25/100] 1 tablet PO 4X/DAY 03/25/17 Cefdinir [Omnicef [equiv]] 300 mg PO Q12H #10 cap 03/28/17 Oseltamivir Phosphate [Tamiflu] 75 mg PO BID 3 Days #6 cap 03/28/17 Quetiapine Fumarate [Seroquel] 25 mg PO QHS 03/28/17 Following Prescrptions Were Given to Patient: Cefdinir [Omnicef [equiv]] 300 mg PO Q12H #10 cap Oseltamivir Phosphate [Tamiflu] 75 mg PO BID 3 Days #6 cap Primary Care Physician: Fede Villeda MD [Primary Care Provider] - Within 2 Weeks Disposition: Home Patient Condition:: Good Meaningful Use Info Meaningful Use Diagnoses (Choose all that apply): None applicable Code Visit Inpatient E&M: 99536 Disch Hosp
[2017-03-28 15:10] VITALS: BP 139/80; PULSE 68; RESP 20; TEMP 36.7; O2SAT 99
[2017-03-28 15:35] VITALS: PULSE 98; RESP 20
== END 2017-03-28 15:40 | disposition home health service (06) | DRG 195 ==
LOC: ED 16:39 → MS2 17:58
PROVIDERS: Admitting Provider Family Medicine; Emergency Provider Emergency Medicine; Family Provider Family Medicine; PCP Family Medicine; Visit Provider Internal Medicine
DX: J10.00 Influenza due to other identified influenza virus with unspecified type of pneumonia (principal); D69.6 Thrombocytopenia, unspecified; G20 Parkinson's disease; E78.5 Hyperlipidemia, unspecified; I25.10 Atherosclerotic heart disease of native coronary artery without angina pectoris; Z95.1 Presence of aortocoronary bypass graft; I10 Essential (primary) hypertension; E87.6 Hypokalemia; Z87.891 Personal history of nicotine dependence
CPT/HCPCS: 36415; 71045; 71046; 80048; 80053; 81001; 83605; 83690; 83735; 84484; 85025; 85610; 85730; 87040; 87070; 87077; 87186; 87205; 87449; 87633; 87804; 93005; 94640; 94667; 94668; 97110; 97116; 97161; 97166; 97530; 97535; 99285; J7030; J7050; A4216

== ENCOUNTER → 2018-02-21 16:05 | Outpatient (CLI) | payer MEDICARE, SELFPAY | PROVIDERS: Family Provider Family Medicine; PCP Family Medicine; Visit Provider Family Medicine | DX: R32 Unspecified urinary incontinence (principal); R35.0 Frequency of micturition | CPT/HCPCS: 87086; 87088 ==

== ENCOUNTER → 2018-02-25 09:47 | Outpatient (CLI) | payer MEDICARE, SELFPAY | PROVIDERS: PCP Family Medicine; Visit Provider Family Medicine | DX: R32 Unspecified urinary incontinence (principal) | CPT/HCPCS: 87077; 87086; 87088; 87186 ==

== ENCOUNTER → 2018-05-02 08:32 | Outpatient (CLI) | payer MEDICARE, SELFPAY ==
[2018-05-03 18:38] LABS: Giardia Lamblia, Stool EIA Negative (Negative)
[2018-05-06 11:04] LABS: Giardia Lamblia, Stool EIA Negative (Negative)
== END ==
PROVIDERS: Family Provider Family Medicine; PCP Family Medicine; Visit Provider Family Medicine
DX: R19.7 Diarrhea, unspecified (principal); R32 Unspecified urinary incontinence
CPT/HCPCS: 36415; 87177; 87209; 87329; 87493; 87506

== ENCOUNTER → 2018-05-17 11:03 | Outpatient (CLI) | payer MEDICARE, SELFPAY ==
[2018-05-17 11:06] LABS: Bacteria 0 SEEN /hpf (None Seen); Red Blood Cells-Urine 0 SEEN /hpf (0-5)
[2018-05-17 12:32] LABS: Color, Urine Yellow (Yellow); Glucose, Dipstick Normal (Normal); Ketone-Dipstick 5 mg/dl (Negative); Leukocyte Esterase-Dipstick 100 /ul (Negative); Nitrite-Dipstick Negative (Negative); Occult Blood-Urine Negative /ul (Negative); Protein-Dipstick Negative (Negative); Specific Gravity, Urine 1.015 (1.002-1.030); Urine Bilirubin Dipstick Negative (Negative); Urine Clarity Sl. Cloudy (Clear); Urine Urobilinogen 1 mg/dl (Normal)
[2018-05-17 12:44] LABS: Mucous, Urine 2+ /hpf (<or=2+); Squamous Epithelial Cells - UA 0-5 SEEN /hpf (0-5); White Blood Cells 10-25 SEEN /hpf (0-5)
== END ==
PROVIDERS: Family Provider Family Medicine; PCP Family Medicine; Visit Provider Family Medicine
DX: R32 Unspecified urinary incontinence (principal); G20 Parkinson's disease; R26.89 Other abnormalities of gait and mobility
CPT/HCPCS: 81001; 87077; 87086; 87088; 87186; 97530

== ENCOUNTER 2018-05-17 12:30 | Outpatient (RCR) | payer MEDICARE, SELFPAY ==
--- NOTE | 2018-03-26 14:54 | HP.PTEVAL_ITS ---
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 Date of Evaluation: 03/26/18 Physical Therapist: ESPERANZA Avalos - Visit Plan Frequency: 2 Duration: 2 Months Plan: 2X/ week for 8 weeks for balance, strengthening, large movements, gait, transfers, motor planning and cognitive functional activities, testing on NeuroCom with HEP - Subjective Findings: The Dr wants the pt to increase the dopamine and that he did not want to take. Dr said to do some PT and see if that helps. Pt is currently doing a class at [facility] and sometimes at [facility] and he is signed up for PT here. He has an airdyne at home but it has a lot of resistance and his knees bother him. And he is signed up for our PD class here at [facility]. Discussed exercises everyday and starting with a floor pedel bike. Dopamine causes hallucinations and he does not want to go that route. He is dopamin 25/100 4X/ day and on memantane. He has a hearing deficit. Trouble going up steps has 2 rails and alternates .... 3 steps up from the garage with 2 rails. Pt has knee braces for his OA cause the shots failed. He wears elastic knee braces cause the brace leaves fernandes on his leg. Pt will check with brace person to see if they can help that. Falls: 2 mo ago had UTI and 2 cataract surge ruies and fell on the garage and then on the slope....only time fallen in last year. In/Out of Bed: Pt is not able to get in bed fully and misjudges his feet on edge of bed. Sitting down...he tends to overshoot the chair - Pain B knee pain Pain Intensity (Out of 10): 5 Comment: standing >5 minutes - Objective Gait: Walks with short scuffed steps, with drastically decreased arm swing. FGA: 14. Stairs: up and down stairs recip with 2 rails with decreased fluididty due to knee pain. LE strength: B hip flex, B knee flex and knee ext, B hip abd all 4+/5. ABle to bridge 3/4 normal ROM. Pt is able to heel raise approx 1/2 normal ROM and toe raises 1/4 normal ROM. Tight B HS and heel cords. Bed mobility: has trouble with judgement of lying down straight and likes to midjudge his feet and head on the bed. Supine to sit: no issue. Sit to stand: able to get up without the use of his UE's - Balance Scores Functional Gait Assessment Score: 14 % Disability: 53.3400 - Goals Goal 1:: I HEP Goal Time Frame: 6-8 Weeks Goal 2:: Be able to get in and out of bed with ease 75% of the time Goal Time Frame: 6-8 Weeks Goal 3:: Test the pt on the Neurocom Goal Time Frame: 6-8 Weeks Goal 4:: be able to sit down in the chair with proper technique Goal Time Frame: 6-8 Weeks - Rehabilitation Potential Rehabilitation Potential: Good - Anticipated Interventions Patient/Client Instruction: Educate patient on: Condition, Plan of Care For the Purpose of:: To increase ROM, To improve muscle performance and motor function, To improve ability to perform ADL's, To increase tolerance to activity/condition/position, To improve performance and independence with ADL's, To improve ability of physical actions for home/community/work/leisure, To improve gait and locomotor functions, To increase flexibility/ROM, To improve balance, To improve safety with gait Therapeutic Exercise to Include: Strength training, Balance training, Postural training, Flexibilty training, Gait and locomotor training, Active ROM For the Purpose of:: To increase ROM, To improve muscle performance and motor function, To improve ability to perform ADL's, To increase tolerance to activity/condition/position, To improve performance and independence with ADL's, To improve ability of physical actions for home/community/work/leisure, To improve gait and locomotor functions, To increase flexibility/ROM, To improve balance Functional Training to Include: Functional home training, Gait training For the Purpose of:: To improve ability to perform ADL's, To improve gait and locomotor functions, To improve safety with gait Thank you for the opportunity to evaluate your patient. For Medicare and Medicare HMO plans, please review the plan of care and approve it. It will need to be FAXED BACK to us at [phone] for Medicare purposes. For Medicare only, by signing this I certify the plan of care. Please let me know if there are questions or concerns regarding this plan of ca re. Physician Signature: Date:
--- NOTE | 2018-04-02 14:12 | HP.PTCOM ---
PT Communication Note 04/02/[address] Demarco Sweet MD , Thank you for the referral of Rayray Velez to our clinic. He was tested on our NeuroCom Equitest System today and enclosed are his test results. On the Sensory Organization Test (SOT), the patients overall score is below age related norms. He has decreased ability to use his visual and vestibular systems to help him maintain his balance. His strategy analysis is more ankle dominant, which is a higher level strategy. His overall reaction time is well with in age related norms as demonstrated on the Motor Control Test (MCT) On the Limits of Stability Test (LOS), the pt had some trouble weight shifting forward. At this point in time we will work on some vestibular inputs to balance and weight shifting forward. We will also work on gait training, functional movements and transfers, LE strength, and endurance activities with HEP. Sincerely, ESPERANZA Avalos Contact Information
--- NOTE | 2018-04-23 10:33 | HP.PTREVAL ---
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 Please see the progress note below for an update on the physical therapy plan of care! Subjective: Pt reports that he feels that he is doing pretty well. He gets comments that he should be doing more exercises at home. Functionally he thinks that he is doing reasonably well. He reports that his knees are keeping him from doing more and more. He thinks that his knee braces help. He is having trouble putting his coat on Objective/Function: Pt tends to trip over own feet when turning 180 degrees. Pt still scuffs feet when walking with decrease arm swing. Pt does not like to supervisor opening and picking feet with anymovemnt due to fear of falling. Plan Plan: See pt 2X/ week for 3 weeks to develop a HEP for cognitive and movement exercises at the same time, Bed exercises, turning with gait, getting feet from being glued to the floor and endurance exercises Goals Goal 1:: I HEP Goal Time Frame: 6-8 Weeks Goal 2:: Be able to get in and out of bed with ease 75% of the time Goal Time Frame: 6-8 Weeks Goal Progress: Goal Met Goal 3:: Test the pt on the Neurocom Goal Time Frame: 6-8 Weeks Goal Progress: Goal Met Goal 4:: be able to sit down in the chair with proper technique Goal Time Frame: 6-8 Weeks Goal Progress: Goal Met Goal 5:: Be able to turn 180 degrees without tripping over own feet 4/5 times Goal Time Frame: 2-4 Weeks Goal 6:: Be able to put coat on/off 4/5 times without difficulty Goal Time Frame: 2-4 Weeks Anticipated Interventions Patient/Client Instruction: Educate patient on: Condition, Plan of Care For the Purpose of:: To increase ROM, To improve muscle performance and motor function, To improve ability to perform ADL's, To increase tolerance to activity/condition/position, To improve performance and independence with ADL's, To improve ability of physical actions for home/community/work/leisure, To improve gait and locomotor functions, To increase flexibility/ROM, To improve balance, To improve safety with gait Therapeutic Exercise to Include: Strength training, Balance training, Postural training, Flexibilty training, Gait and locomotor training, Active ROM For the Purpose of:: To increase ROM, To improve muscle performance and motor function, To improve ability to perform ADL's, To increase tolerance to activity/condition/position, To improve performance and independence with ADL's, To improve ability of physical actions for home/community/work/leisure, To improve gait and locomotor functions, To increase flexibility/ROM, To improve balance Functional Training to Include: Functional home training, Gait training For the Purpose of:: To improve ability to perform ADL's, To improve gait and locomotor functions, To improve safety with gait Please do not hesitate to contact me at [phone] by phone or if you have questions or concerns regarding this new plan of care! Sincerely, Leanne Hess MPT
--- NOTE | 2018-05-17 14:13 | HP.PTDCSUM ---
HP - PT D/C Summary It has been my pleasure to treat JAVIER MANNING under orders from Demarco Sweet MD, for the diagnosis of balance and gait disorder from PD and knee issues for a total of 14 visit(s). Discharge Date: 05/17/18 Please see the following information for a summary of their discharge status. - Subjective Subjective: reports that he is getting in and out of bed by himself. He is getting his coat on easier. - Pain B knee pain Pain Intensity (Out of 10): 0 - Overall Improvement % Improvement: 50 - Objective Objective/Function: Pt still likes to drag feet when turning 180 degrees. - Goals Goal 1:: I HEP Goal Progress: Goal Met Goal 2:: Be able to get in and out of bed with ease 75% of the time Goal Progress: Goal Met Goal 3:: Test the pt on the Neurocom Goal Progress: Goal Met Goal 4:: be able to sit down in the chair with proper technique Goal Progress: Goal Met Goal 5:: Be able to turn 180 degrees without tripping over own feet 4/5 times Goal Progress: Goal Met Goal 6:: Be able to put coat on/off 4/5 times without difficulty Goal Progress: Goal Met - Plan Plan: Re-check next visit and give HEP. See pt 2X/ week for 3 weeks to develop a HEP for cognitive and movement exercises at the same time, Bed exercises, turning with gait, getting feet from being glued to the floor and endurance exercises - D/C Information Discharge Comments: DC PT to HEP and DTD classes If there are questions or concerns regarding this patient's physical therapy, please feel free to call me at [phone]. Thank you for the referral of this patient. Sincerely, Leanne Hess, MPT
== END 2018-05-17 14:35 | disposition home or self-care (01) ==
LOC: PT 12:30
PROVIDERS: Family Provider Family Medicine; PCP Family Medicine; Referring Provider Psychiatry & Neurology Neurology; Visit Provider Psychiatry & Neurology Neurology
DX: R26.89 Other abnormalities of gait and mobility (principal); G20 Parkinson's disease; R19.7 Diarrhea, unspecified; R32 Unspecified urinary incontinence
CPT/HCPCS: 87086; 87088; 87186; 97110; 97161; 97530; 97750

== ENCOUNTER → 2018-05-22 15:13 | Outpatient (CLI) | payer MEDICARE, SELFPAY ==
[2017-03-25 19:39] VITALS: BMI 23.2
== END ==
PROVIDERS: Family Provider Family Medicine; PCP Family Medicine; Visit Provider Nurse Practitioner Adult Health
DX: N39.0 Urinary tract infection, site not specified (principal)
CPT/HCPCS: 87086

== ENCOUNTER → 2018-05-28 09:45 | Outpatient (CLI) | payer MEDICARE, SELFPAY | PROVIDERS: Family Provider Family Medicine; PCP Family Medicine; Referring Provider Nurse Practitioner Adult Health; Visit Provider Nurse Practitioner Adult Health | DX: Z12.5 Encounter for screening for malignant neoplasm of prostate (principal) | CPT/HCPCS: 36415; 84153; G0103 ==

== ENCOUNTER → 2018-07-11 | Outpatient (CLI) | payer MEDICARE, SELFPAY | END | disposition home or self-care (01) | LOC: LABSPEC 09:32 | PROVIDERS: Family Provider Family Medicine; PCP Family Medicine; Referring Provider Nurse Practitioner Adult Health; Visit Provider Nurse Practitioner Adult Health | DX: R41.0 Disorientation, unspecified (principal) | CPT/HCPCS: 87077; 87086; 87088; 87186 ==

== ENCOUNTER → 2018-08-02 | Outpatient (CLI) | payer MEDICARE, SELFPAY ==
[2018-08-02 17:22] LABS: Color, Urine Yellow (Yellow); Glucose, Dipstick Normal (Normal); Ketone-Dipstick 5 mg/dl (Negative); Leukocyte Esterase-Dipstick 25 /ul (Negative); Nitrite-Dipstick Negative (Negative); Occult Blood-Urine Negative /ul (Negative); Protein-Dipstick 15 mg/dl (Negative); Urine Bilirubin Dipstick Negative (Negative); Urine Clarity Clear (Clear); Urine Urobilinogen Normal (Normal)
== END | disposition home or self-care (01) ==
LOC: LAB.FUTURE 15:59
PROVIDERS: Family Provider Family Medicine; PCP Family Medicine; Referring Provider Family Medicine; Visit Provider Family Medicine
DX: R32 Unspecified urinary incontinence (principal)
CPT/HCPCS: 81002; 87086; 87088

== ENCOUNTER → 2018-09-19 | Outpatient (CLI) | payer MEDICARE, SELFPAY ==
[2018-09-17 13:20] VITALS: BMI 21.8
[2018-09-19 08:08] LABS: AST(SGOT) 10 U/L (15-37); Alanine Aminotransfer ALT/SGPT 7 U/L (16-61); Albumin, Serum 3.5 g/dL (3.2-5.0); Alkaline Phosphatase 93 U/L (45-117); Bilirubin, Direct 0.14 mg/dL (0.00-0.30); Cholesterol 141 mg/dL (200); Globulin 2.9 g/dL (2.2-4.2); High Density Lipoprotein 43 mg/dL; Protein, Total 6.4 g/dL (6.4-8.2); Triglycerides 81 mg/dL; Very Low Density Lipoprotein 16 mg/dL (5-40)
== END | disposition home or self-care (01) ==
LOC: LABSPEC 09-20 09:25
PROVIDERS: Family Provider Family Medicine; PCP Family Medicine; Referring Provider Internal Medicine Cardiovascular Disease; Visit Provider Internal Medicine Cardiovascular Disease
DX: E78.5 Hyperlipidemia, unspecified (principal); I25.10 Atherosclerotic heart disease of native coronary artery without angina pectoris; I25.2 Old myocardial infarction; Z95.1 Presence of aortocoronary bypass graft
CPT/HCPCS: 36415; 80061; 80076

== ENCOUNTER 2018-10-06 11:04 | Emergency (ER) | payer MEDICARE, SELFPAY ==
[2018-09-17 13:20] VITALS: BMI 21.8
[2018-10-06 11:07] VITALS: BP 126/63; PULSE 61; RESP 18; TEMP 36.5; O2SAT 98; BMI 21.7
--- NOTE | 2018-10-06 11:25 | ED.DCSUM_ITS ---
History of Present Illness Chief Complaint: Complaint Detail of Chief Complaint: Confusion, bedwetting Informant: Patient, Significant Other Onset: - - Increased confusion x3 days, bedwetting today. Narrative: Patient brought in with . states that over the past 3 days she has noted her to have auditory and visual hallucinations and more confusion. This morning patient had an episode of bedwetting. He has had similar symptoms in the past with UTIs. She called Dr. Del Rio's office and they recommended he come to the emergency room to be evaluated. Patient has had no recent falls or head injuries. He denies fever or chills. He does not have dysuria. 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 Adan: PEARSON to LAD, SVG to the distal LAD, SVG to first diagonal, SVG to second diagonal, SVG to high lateral/LC Ramus (subsequent LHC done 09/14/06 revealed SVG to second diagonal is 100% stenosed). Past Medical History - Allergies and Home Meds Allergies/Adverse Reactions: Allergies atorvastatin calcium [From Lipitor] Allergy (Severe, Verified 10/06/18 11:06) Pain in joints Sulfa (Sulfonamide Antibiotics) Allergy (Severe, Verified 10/06/18 11:06) Rash amoxicillin Allergy (Verified 10/06/18 11:06) Rash ampicillin Allergy (Verified 10/06/18 11:06) Rash lisinopril Adverse Reaction (Intermediate, Verified 10/06/18 11:06) cough rosuvastatin Adverse Reaction (Unknown, Verified 10/06/18 11:06) unknown Primary Care Physician: Fede Villeda MD [Primary Care Provider] - As soon as possible Doctors: Dr. Del Rio Prior records reviewed: Yes Past Medical History: - - Reviewed Surgical History: adenoidectomy, coronary bypass surgery - X5, herniorrhaphy, tonsillectomy, - - Eye surgery for glaucoma, laser surgery. Lives: Spouse/ Significant Other Smoking Status: Former smoker - Family History Maternal Family History: Family History (Last Reviewed 09/17/18 @ 13:21 by Kylah Lopez) Unknown No problems noted. Family History: Reports: Heart Disease - Mother w/ history of CHF. Paternal Family History: Family History (Last Reviewed 09/17/18 @ 13:21 by Kylah Lopez) Unknown No problems noted. Family History: Reports: - - Father with history of parkinson's disease as well as CAD s/p CABG. Review of Systems General: Denies: Chills, Fever Eyes: Denies: Visual changes - bilaterally ENT: Denies: Bilateral ear pain Cardiovascular: Denies: Chest pain, Palpitations Respiratory: Denies: Dyspnea, Cough Gastrointestinal: Denies: Abdominal pain, Nausea, Vomiting, Diarrhea Genitourinary: Reports: - - Loss of bladder control this morning. Denies: Dysuria, Frequency Musculoskeletal: Denies: Back pain Neurological: Reports: Weakness - Generalized weakness. Denies: Headache Psych: Reports: - - Visual and auditory hallucinations Physical Exam Vital Signs/Narrative: Vital Signs Temp Pulse Resp BP Pulse Ox 10/06/18 11:07 97.7 F L 61 18 126/63 H 98 Inital Vital Signs reviewed: Yes General: Well nourished, Well developed ENT: Moist mucous membranes Cardiovascular: Regular rate, Regular rhythm Respiratory: No distress, CTA bilaterally Abdomen: Soft, Nontender Back: Nontender Extremities: - - 1+ bilateral lower extremity edema that is symmetric. Skin: Normal color Neurological: Alert, Oriented x3 Psychological: Normal affect Diagnostic/Tx/Re-eval Laboratory Results 10/06/18 10/06/18 10/06/18 11:34 11:34 12:15 WBC 6.3 RBC 4.56 L Hgb 14.6 Hct 44.5 MCV 97.6 H MCH 32.0 MCHC 32.8 RDW Std Deviation 45.2 H RDW Coeff of Nikolai 12.8 Plt Count 153 MPV 9.5 Immature Gran % (Auto) 0.300 Neut % (Auto) 80.0 H Lymph % (Auto) 8.2 L Amador % (Auto) 10.8 H Eos % (Auto) 0.2 Baso % (Auto) 0.5 Absolute Neuts (auto) Not Reportable Absolute Lymphs (auto) 0.52 L Absolute Nucleated RBC 0.00 Nucleated RBC % 0 Sodium 139 Potassium 4.0 Chloride 109 H Carbon Dioxide 29.0 Anion Gap 1 L BUN 23 H Creatinine 0.92 Estim Creat Clear Calc 62.41 Est GFR (MDRD) Af Amer 102 Est GFR (MDRD) Non-Af 84 BUN/Creatinine Ratio 25.0 H Glucose 108 H Calcium 8.5 Urine Color Yellow Urine Clarity Clear Urine pH 7.0 Ur Specific Happy 1.010 Urine Protein Negative Urine Glucose (UA) Normal Urine Ketones 5 H Urine Occult Blood Negative Urine Nitrite Negative Urine Bilirubin Negative Urine Urobilinogen Normal Ur Leukocyte Esterase 25 H Urine RBC 0 SEEN Urine WBC 0-5 SEEN Ur Squamous Epith Cells 0 SEEN Urine Bacteria 0 SEEN Urine Mucus 0 SEEN - Medical Decision Making Test results were discussed with patient and at bedside. Patient has no other complaints at this time and work-up at this point has been unremarkable. I advised that is if his symptoms continue he is to have urine rechecked in a couple days. Urine culture was sent and that result will be available in a few days as well. She voices understanding and agreement. She is comfortable caring for him at home. ED Disposition - Plan for ED Patient: Disposition: Home or Assisted Living Diagnosis: Confusion Instructions: Confusion Referrals: Fede Villeda MD [Primary Care Provider] - As soon as possible
[2018-10-06] MEDS: 0.9% Normal Saline 1,000 ML 15 ML IV (11:39)
[2018-10-06 11:44] LABS: Absolute Lymphocyte Count 0.52 X10^3/uL (0.83-4.51); Basophil# 0.03 X10^3/uL; Basophil% 0.5 % (0-1); Eosinophil# 0.01 X10^3/uL; Eosinophils% 0.2 % (0-5); Hematocrit 44.5 % (40-54); Hemoglobin 14.6 g/dL (13.0-16.5); Lymphocyte # 0.52 X10^3/ul (4.0); Lymphocyte % 8.2 % (19-41); Mean Corp Hgb Conc 32.8 g/dL (32-36); Mean Corpuscular Volume 97.6 fL (80-94); Mean Platelet Vol. 9.5 fl (6.2-12.0); Monocyte# 0.68 X10^3/uL; Monocyte% 10.8 % (0-10); NRBC Flagged by Analyzer 0 % (0-5); Neutrophil # 5.06 X10^3/uL (2.7-7.7); POSITIVE DIFFERENTIAL YES; Platelet Count 153 K/mm3 (150-450); RBC Distribution Width CV 12.8 % (11.6-14.6); RBC Distribution Width SD 45.2 fl (35.1-43.9); Red Blood Count 4.56 M/mm3 (4.6-6.2); White Blood Count 6.3 K/mm3 (4.4-11.0)
[2018-10-06 11:45] LABS: Differential Indicated SCAN CRITERIA MET
[2018-10-06 11:58] LABS: Anion Gap 1 (5-15); BUN 23 mg/dL (7-18); Calcium,Total 8.5 mg/dL (8.5-10.1); Chloride 109 mmol/L (98-107); Creatinine, Serum 0.92 mg/dL (0.70-1.30); EST Glomerular Filtration Rate 84 mL/min (>60); Est Glom Filt Rate - Afr Amer 102 mL/min (>60); Estimated Creatinine Clearance 62.41 ml/min; Glucose 108 mg/dL (74-106); Sodium Level 139 mmol/L (136-145)
[2018-10-06 12:21] VITALS: BP 141/70; PULSE 61; RESP 14; TEMP 36.6; O2SAT 98
[2018-10-06 12:28] LABS: Bacteria 0 SEEN /hpf (None Seen); Mucous, Urine 0 SEEN /hpf (<or=2+); Red Blood Cells-Urine 0 SEEN /hpf (0-5); Squamous Epithelial Cells - UA 0 SEEN /hpf (0-5)
[2018-10-06 12:37] LABS: Color, Urine Yellow (Yellow); Glucose, Dipstick Normal (Normal); Ketone-Dipstick 5 mg/dl (Negative); Leukocyte Esterase-Dipstick 25 /ul (Negative); Nitrite-Dipstick Negative (Negative); Occult Blood-Urine Negative /ul (Negative); Protein-Dipstick Negative (Negative); Urine Bilirubin Dipstick Negative (Negative); Urine Clarity Clear (Clear); Urine Urobilinogen Normal (Normal)
[2018-10-06 12:41] LABS: White Blood Cells 0-5 SEEN /hpf (0-5)
[2018-10-06 13:05] VITALS: BP 134/65; PULSE 53; RESP 16; O2SAT 99
[2018-10-06 13:26] VITALS: BP 134/65; PULSE 55; RESP 16; O2SAT 99
== END 2018-10-06 13:32 | disposition home or self-care (01) ==
PROVIDERS: Emergency Provider Emergency Medicine; Family Provider Family Medicine; PCP Family Medicine
DX: R41.0 Disorientation, unspecified (principal); Z87.440 Personal history of urinary (tract) infections; I25.810 Atherosclerosis of coronary artery bypass graft(s) without angina pectoris; E78.5 Hyperlipidemia, unspecified; I25.2 Old myocardial infarction; G20 Parkinson's disease; Z95.1 Presence of aortocoronary bypass graft; Z79.82 Long term (current) use of aspirin; Z79.899 Other long term (current) drug therapy; Z87.891 Personal history of nicotine dependence
CPT/HCPCS: 36415; 80048; 81001; 85025; 87040; 87086; 87088; 99283; J7030; A4216

== ENCOUNTER → 2018-10-08 | Outpatient (CLI) | payer MEDICARE, SELFPAY ==
[2018-09-17 13:20] VITALS: BMI 21.8
[2018-10-06 11:07] VITALS: BMI 21.7
--- NOTE | 2018-10-08 12:43 | ECHOD_ITS ---
Reason For Study: S/P CABG, OLD MA. Procedure This was a 2D Doppler, Color Flow transthoracic echocardiogram. Exam performed in department. Left Ventricle Normal size and thickness. The estimated ejection fraction is 55 %. Stage 1 diastolic dysfunction. Basal anteroseptal: Mildly hypokinetic. Mid-anteroseptal : Mildly hypokinetic. Right Ventricle Mildly dilated right ventricle. Normal systolic function. Atria The left atrium is mildly enlarged. Normal right atrium. Normal atrial septum. Bubble contrast study negative for right to left interatrial shunt. Mitral Valve Mild diffuse mitral valve thickening. Equivocal mitral valve prolapse. Trivial posteriorly directed mitral valve insufficiency. Tricuspid Valve Normal tricuspid valve. Mild (1+) tricuspid valve insufficiency. Right ventricular systolic pressure estimated to be 30 mmHg. Aortic Valve Normal aortic valve. Trisinus/trileaflet aortic valve. Pulmonic Valve Normal pulmonic valve. Trivial pulmonic valve insufficiency. Great Vessels Normal aortic root. Normal arch. Normal inferior vena cava. Inferior vena cava collapse with sniff. Pericardium/Pleural No pericardial effusion. Medication 22 gauge I.V. with prn adaptor inserted into right arm. Performed a rapid injection of agitated mix of 9 cc saline and 1cc air to assess for atrial septal defect. MMode/2D Measurements & Calculations LVIDd: 5.7 cm IVSd: 0.88 cm Ao root diam: 3.4 cm LVIDs: 3.2 cm LVPWd: 1.1 cm RVDd: 3.8 cm FS: 43.0 % LAV(MOD-bp): 86.6 ml LA A4 area: 25.4 cm2 LA dimension(2D): 4.5 cm LAV(MOD-bp) Indexed: 47.7 ml/m2 LAV(MOD-sp2): 78.8 ml LAV(MOD-sp4): 90.0 ml RA A4 area: 16.3 cm2 Doppler Measurements & Calculations MV E max edu: 45.4 cm/sec Lat Peak E' Edu: 9.2 cm/sec Med Peak E' Edu: 4.7 cm/sec MV A max edu: 64.8 cm/sec E/E' lat: 4.9 E/E' med: 9.6 MV E/A: 0.70 Ao V2 max: 121.7 cm/sec LV V1 max: 78.8 cm/sec PA V2 max: 155.3 cm/sec Ao max P.9 mmHg LV V1 max P.5 mmHg TR max edu: 228.5 cm/sec TR max P.1 mmHg Interpretation Summary The estimated ejection fraction is 55 %. Stage 1 diastolic dysfunction. Basal anteroseptal: Mildly hypokinetic Mid-anteroseptal : Mildly hypokinetic Mildly dilated right ventricle. The left atrium is mildly enlarged. Equivocal mitral valve prolapse. Trivial posteriorly directed mitral valve insufficiency. Mild (1+) tricuspid valve insufficiency. Right ventricular systolic pressure estimated to be 30 mmHg. Bubble contrast study negative for right to left interatrial shunt. There is no comparison study available. Ordering Physician: Lokesh Bishpo Referring Physician: Fede Villeda Performed By: Muna Hidalgo RDCS, RVT
== END | disposition home or self-care (01) ==
LOC: CVS 12:42
PROVIDERS: Family Provider Family Medicine; PCP Family Medicine; Referring Provider Internal Medicine Cardiovascular Disease; Visit Provider Internal Medicine Cardiovascular Disease
DX: I25.2 Old myocardial infarction (principal); Z95.1 Presence of aortocoronary bypass graft
CPT/HCPCS: 93306; A4216

== ENCOUNTER → 2018-10-15 | Outpatient (CLI) | payer MEDICARE, SELFPAY ==
[2018-09-17 13:20] VITALS: BMI 21.8
[2018-10-06 11:07] VITALS: BMI 21.7
--- NOTE | 2018-10-15 10:22 | STEWCON_ITS ---
Reason For Study: CAD/ASHD Stress Results Protocol: Dobutamine with definity Maximum Predicted HR: 142 bpm Target HR: 121 bpm % Maximum Predicted HR: 88 % DurationHeart Rate Stage (mm:ss) (bpm) BP Dose Comment BASELINE 64 165/79 1 CC DEFINITY STAGE 1 3:00 65 163/7710.00 STAGE 2 4:23 125 170/8020.00 RECOVERY 89 136/75 2CC DEFINITY Stress Duration: 7:23 mm:ss Maximum Stress HR: 125 bpm Baseline Echocardiogram Findings The estimated ejection fraction is 55 %. Stress Echo Wall motion Data Resting WM Intermediate WM Stress WM Resting Wall Motion Wall Motion Stress Basal anteroseptal: Mildly No regional wall motion hypokinetic. abnormalities noted. EKG Data The baseline ECG displays normal sinus rhythm. The patient was titrated from 10 mcg to a maximum of 20 mcg of dobutamine during the stress. The maximum heart rate attained was 131 beats per minute. This was 92% of maximum predicted heart rate. No clinical angina was noted. Interpretation Summary The estimated ejection fraction is 55 %. Baseline Basal anteroseptal: Mildly hypokinetic Normal, adequate, dobutamine echocardiogram. Negative for ischemia by EKG and echocardiographic anterior. The patient at baseline basal anteroseptal wall hypokinesis, which did not appreciably worsen at peak infusion. Rare PVCs noted which is a nonspecific finding during infusion. Appropriate blood pressure response to dobutamine. Final LVEF of 65%. Test terminated due to attainment target heart rate. No anginal symptoms noted. Decreased sensitivity due to poor echo windows requiring Definity agent. No complications. The study was technically difficult. Contrast injection was performed. Ordering Physician: Lokesh Bishop Referring Physician: Lokesh Bishop Performed By: Muna Hidalgo, MAK, RVT
== END | disposition home or self-care (01) ==
LOC: CVS 10:21
PROVIDERS: Family Provider Family Medicine; PCP Family Medicine; Referring Provider Internal Medicine Cardiovascular Disease; Visit Provider Internal Medicine Cardiovascular Disease
DX: I25.10 Atherosclerotic heart disease of native coronary artery without angina pectoris (principal); I25.810 Atherosclerosis of coronary artery bypass graft(s) without angina pectoris; I25.2 Old myocardial infarction; E78.5 Hyperlipidemia, unspecified; Z95.1 Presence of aortocoronary bypass graft
CPT/HCPCS: 93017; 93350; J7040; Q9957; A4216; C8928

== ENCOUNTER → 2019-01-02 | Outpatient (CLI) | payer MEDICARE, SELFPAY | END | disposition home or self-care (01) | PROVIDERS: Family Provider Family Medicine; PCP Family Medicine | DX: R30.0 Dysuria (principal) | CPT/HCPCS: 87077; 87086; 87088; 87186 ==

== ENCOUNTER 2019-01-21 14:00 | Outpatient (RCR) | payer MEDICARE, SELFPAY ==
--- NOTE | 2018-11-27 10:59 | HP.PTEVAL ---
Patient's Visit Information JAVIER MANNING is a 78 year old M referred to Physical Therapy by Demarco Sweet MD with a diagnosis of Parkinson's Disease.. Date of Evaluation: 11/27/18 Physical Therapist: Lawrence Sears, JOSE LUIST, OCS, CSCS - Visit Plan Frequency: 2x /Week Duration: 2 Months Plan: 2x/week for 4-8 weeks for AT to work on. 1. Parkinsons weight shift adn BIG movement ex. 2. LE and postural strength. 3. HS, gastroc, quad stretching to tolerance. - Subjective Findings: Had CABGx5 12 yrs ago without precautions. Has bone on bone in B knees. Needs replacements but not recommended for him by mammography tech. Diagnosed with PD since 2011. These meds change nearly every visit(3 months) Is on small doses of dopamine due to hallucinations. Does weekly Parkinsons class. Had therapy previously for PD which helps. Rides airdayne at home. Uses sitting in chair and moves weights. Does sitting ex in class as knees start to hurt after 100 feet. Limtied in class due to knee pain. Balance is not as good as it used to be. No falls . Uses walker at night when he gets up and for longer distances. Has mpotorized WC whcih he uses (goti it a month ago) to ride down the street with a dog. Retired. Sleep is OK Up 2-4x per night to urinate. Dress self, can make meals with pre prep. bthroom and shower on own. Hobby used to be flying. - Pain B knees Pain Intensity (Out of 10): 0 Pain Intensity Range: 0, 7 Comment: gone with sitting. - Objective Walks with short steps avoiding FW weight shift but I on firm flat surface. Slow to turn. Trasnfers I with UE. bed transfers hard to shift weight but I. steps require 2 rails and can do reciprocal but R knee hurts. knee AROM R -3 to 100 and L -1 to 104. HS adn gastrocs tight maximally and quads max tight. sensation LE WNL to gross light touch. reflexes 1/3 patella and achilles. Motor control for inv/ev and DF PF are small movements avoiding endrange. Steps are short. - Balance Scores Functional Gait Assessment Score: 21 % Disability: 30.0000 CATSIB Score (Max score 120 seconds): 65 - Goals Goal 1:: Knee pain 0-2/10 at all times adn walk 300 feet without pain. Goal Time Frame: 4-6 Weeks Goal 2:: I appropr water ex. Goal Time Frame: 4-6 Weeks - Rehabilitation Potential Physical Therapy Diagnosis: Parkinson's disease/ knee OA Rehabilitation Potential: Fair - Anticipated Interventions Patient/Client Instruction: Educate patient on: Condition, Plan of Care For the Purpose of:: To increase tolerance to activity/condition/position, To improve performance and independence with ADL's, To improve ability of physical actions for home/community/work/leisure Therapeutic Exercise to Include: Strength training, Balance training, Flexibilty training, Gait and locomotor training, In an aquatic setting, Active ROM For the Purpose of:: To decrease pain, To improve nutrient delivery to tissue, To improve muscle performance and motor function, To increase tolerance to activity/condition/position Thank you for the opportunity to evaluate your patient. For Medicare and Medicare HMO plans, please review the plan of care and approve it. It will need to be FAXED BACK to us at [phone] for Medicare purposes. For Medicare only, by signing this I certify the plan of care. Please let me know if there are questions or concerns regarding this plan of care. Physician Signature: Date:
--- NOTE | 2018-12-31 14:02 | HP.PTREVAL ---
Demarco Sweet MD, It has been my pleasure to treat JAVIER MANNING over the last 9 visits for Parkinson's Disease.. Please see the progress note below for an update on the physical therapy plan of care! Subjective: Gets shaky this time of day. Loves water therapy as it is helpful for his pain and knees feel good for whole session. Relief doesn't last long after he gets home. Walking longer distances still can be bothersome. 8/10 if walks too far. Feels exhilarated for the day after getting in the water. and into the next morning. Lyla gave him ex at home and not sure how helpful they are. Objective/Function: Walking I without AD today but tends to have a short step every now and then and catch his foot shuffling. No falls or LOB today. Recommended walker which he has at home but does not wish to use. Plan Plan: 2x/week for 3 weeks to continue in pool and emphasize I in pool with pictures and list. Pt to look into community pools. Goals Goal 1:: Knee pain 0-2/10 at all times adn walk 300 feet without pain. Goal Time Frame: 4-6 Weeks Goal Progress: Not Progressing Goal 2:: I appropr water ex. Goal Time Frame: 4-6 Weeks Goal Progress: Progressing Anticipated Interventions Patient/Client Instruction: Educate patient on: Condition, Plan of Care For the Purpose of:: To increase tolerance to activity/condition/position, To improve performance and independence with ADL's, To improve ability of physical actions for home/community/work/leisure Therapeutic Exercise to Include: Strength training, Balance training, Flexibilty training, Gait and locomotor training, In an aquatic setting, Active ROM For the Purpose of:: To decrease pain, To improve nutrient delivery to tissue, To improve muscle performance and motor function, To increase tolerance to activity/condition/position Please do not hesitate to contact me at [phone] by phone or if you have questions or concerns regarding this new plan of care! Sincerely, Lawrence Sears, DPT, OCS, CSCS
--- NOTE | 2019-03-27 15:42 | HP.PT.NRP ---
HP - Discharge Summary (1) - Patient Information JAVIER MANNING was seen in my office for initial evaluation on 11/27/18. The following Plan of Care was established for this patient: Initial Frequency: 2x /Week Initial Duration: 2 Months - Anticipated Interventions Patient/Client Instruction: Educate patient on: Condition, Plan of Care For the Purpose of:: To increase tolerance to activity/condition/position, To improve performance and independence with ADL's, To improve ability of physical actions for home/community/work/leisure Therapeutic Exercise to Include: Strength training, Balance training, Flexibilty training, Gait and locomotor training, In an aquatic setting, Active ROM For the Purpose of:: To decrease pain, To improve nutrient delivery to tissue, To improve muscle performance and motor function, To increase tolerance to activity/condition/position This patient was last seen in our office 01/21/19. Pertinent comments regarding their Physical therapy will appear below: Pt seen for 14 visits of his POC and was slowly improving. He did not show up for his final visit and has neglected to reschedule. at this point, it has been over two months and I will disocntinue due to nonattendance. At this point I will be discontinuing this patient from physical therapy. I would be happy to see this patient again in the future if found appropriate by the physician. Thank you! Lawrence Sears, DPT, OCS, CSCS
== END 2019-01-21 19:00 | disposition home or self-care (01) ==
LOC: PT 14:00
PROVIDERS: Family Provider Family Medicine; PCP Family Medicine; Visit Provider Psychiatry & Neurology Neurology
DX: G20 Parkinson's disease (principal)
CPT/HCPCS: 97110; 97113; 97162; 97530

== ENCOUNTER → 2019-01-30 | Outpatient (CLI) | payer MEDICARE, SELFPAY | END | disposition home or self-care (01) | LOC: LABSPEC 15:19 | PROVIDERS: Family Provider Family Medicine; PCP Family Medicine; Referring Provider Nurse Practitioner Adult Health; Visit Provider Nurse Practitioner Adult Health | DX: R30.0 Dysuria (principal) | CPT/HCPCS: 87077; 87086; 87088; 87186 ==

== ENCOUNTER → 2019-11-17 05:58 | Outpatient (CLI) | payer MEDICARE, SELFPAY ==
[2019-11-13 12:05] VITALS: BMI 23.3
[2019-11-17 07:30] LABS: AST(SGOT) 8 U/L (15-37); Alanine Aminotransfer ALT/SGPT 7 U/L (16-61); Albumin, Serum 3.4 g/dL (3.2-5.0); Alkaline Phosphatase 95 U/L (45-117); Bilirubin, Direct 0.19 mg/dL (0.00-0.30); Cholesterol 148 mg/dL (200); Globulin 3.2 g/dL (2.2-4.2); High Density Lipoprotein 42 mg/dL; Protein, Total 6.6 g/dL (6.4-8.2); Triglycerides 63 mg/dL; Very Low Density Lipoprotein 13 mg/dL (5-40)
== END ==
PROVIDERS: PCP Family Medicine; Referring Provider Internal Medicine Cardiovascular Disease; Visit Provider Internal Medicine Cardiovascular Disease
DX: E78.5 Hyperlipidemia, unspecified (principal); I25.10 Atherosclerotic heart disease of native coronary artery without angina pectoris
CPT/HCPCS: 36415; 80061; 80076

== ENCOUNTER → 2020-05-24 10:45 | Outpatient (REF) | payer MEDICARE, SELFPAY ==
[2019-11-13 12:05] VITALS: BMI 23.3
[2020-05-24 11:50] LABS: Color, Urine Yellow (Yellow); Glucose, Dipstick Normal (Normal); Ketone-Dipstick 5 mg/dl (Negative); Leukocyte Esterase-Dipstick 25 /ul (Negative); Nitrite-Dipstick Negative (Negative); Occult Blood-Urine 10 /ul (Negative); Protein-Dipstick 15 mg/dl (Negative); Specific Gravity, Urine 1.015 (1.002-1.030); Urine Bilirubin Dipstick Negative (Negative); Urine Clarity Sl. Cloudy (Clear); Urine Urobilinogen 1 mg/dl (Normal); Urine pH 6.5 (5.0 - 8.0)
== END ==
LOC: OLS.DANBUR 10:45
PROVIDERS: PCP Family Medicine; Visit Provider Family Medicine
DX: N39.0 Urinary tract infection, site not specified (principal)
CPT/HCPCS: 81002; 87086; 87088

== ENCOUNTER → 2020-05-27 05:00 | Outpatient (REF) | payer MEDICARE, SELFPAY ==
[2019-11-13 12:05] VITALS: BMI 23.3
[2020-05-27 07:12] LABS: Absolute Lymphocyte Count 0.49 X10^3/uL (0.83-4.51); Absolute Neutrophil Count 6.6 X10^3/uL (2.0-7.7); Basophil# 0.04 X10^3/uL; Basophil% 0.5 % (0-1); Eosinophils% 1.2 % (0-5); Hemoglobin 12.8 g/dL (13.0-16.5); Lymphocyte # 0.49 X10^3/ul (4.0); Lymphocyte % 5.9 % (19-41); Mean Corpuscular Hgb 30.6 pg (27.0-32.0); Mean Corpuscular Volume 95.7 fL (80-94); Mean Platelet Vol. 9.5 fl (6.2-12.0); Monocyte# 0.93 X10^3/uL; Monocyte% 11.3 % (0-10); NRBC Flagged by Analyzer 0 % (0-5); Neutrophil # 6.64 X10^3/uL (2.7-7.7); Neutrophil % 80.6 % (47-70); POSITIVE DIFFERENTIAL YES; Platelet Count 179 K/mm3 (150-450); RBC Distribution Width CV 13.2 % (11.6-14.6); RBC Distribution Width SD 47.1 fl (35.1-43.9); Red Blood Count 4.18 M/mm3 (4.6-6.2); White Blood Count 8.2 K/mm3 (4.4-11.0)
[2020-05-27 07:33] LABS: Differential Indicated SCAN CRITERIA MET
[2020-05-27 07:41] LABS: Differential Comment SCANNED
[2020-05-27 07:58] LABS: ALB/GLOB Ratio 0.9 RATIO (0.9-2.4); AST(SGOT) 10 U/L (15-37); Alanine Aminotransfer ALT/SGPT 9 U/L (16-61); Albumin, Serum 2.9 g/dL (3.2-5.0); Alkaline Phosphatase 82 U/L (45-117); Anion Gap 7 (5-15); BUN 28 mg/dL (7-18); BUN/Creat Ratio 37.3 RATIO (10-20); Calcium,Total 8.1 mg/dL (8.5-10.1); Chloride 109 mmol/L (98-107); Cholesterol 143 mg/dL (200); Creatinine, Serum 0.75 mg/dL (0.70-1.30); EST Glomerular Filtration Rate 106 mL/min (>60); Est Glom Filt Rate - Afr Amer 129 mL/min (>60); Globulin 3.3 g/dL (2.2-4.2); Glucose 88 mg/dL (74-106); High Density Lipoprotein 43 mg/dL; Potassium 3.7 mmol/L (3.5-5.1); Protein, Total 6.2 g/dL (6.4-8.2); Sodium Level 143 mmol/L (136-145); Triglycerides 46 mg/dL; Very Low Density Lipoprotein 9 mg/dL (5-40)
== END ==
LOC: OLS.DANBUR 05:00
PROVIDERS: PCP Family Medicine; Referring Provider Family Medicine; Visit Provider Family Medicine
DX: F03.90 Unspecified dementia, unspecified severity, without behavioral disturbance, psychotic disturbance, mood disturbance, and anxiety (principal); I10 Essential (primary) hypertension; E78.5 Hyperlipidemia, unspecified
CPT/HCPCS: 36415; 80053; 80061; 85025

== ENCOUNTER → 2020-11-11 05:00 | Outpatient (REF) | payer MEDICARE, SELFPAY ==
[2020-11-11 09:40] LABS: Vitamin B12 800 pg/mL (211-911); Vitamin D,25 Hydroxy 40.4 ng/mL
== END ==
LOC: OLS.DANBUR 05:00
PROVIDERS: PCP Family Medicine; Visit Provider Family Medicine
DX: G20 Parkinson's disease (principal); E55.9 Vitamin D deficiency, unspecified
CPT/HCPCS: 36415; 82306; 82607; 82746

== ENCOUNTER 2021-05-10 17:00 | Outpatient (REF) | payer MEDICARE, SELFPAY | END 2021-05-10 23:59 | disposition home or self-care (01) | LOC: OLS.DANBUR 17:00 | PROVIDERS: PCP Family Medicine; Referring Provider Family Medicine; Visit Provider Family Medicine | DX: N39.0 Urinary tract infection, site not specified (principal) | CPT/HCPCS: 87086; 87088 ==

== ENCOUNTER 2021-05-12 04:00 | Outpatient (REF) | payer MEDICARE, SELFPAY ==
[2021-05-12 08:19] LABS: Hematocrit 39.5 % (40-54); Hemoglobin 12.9 g/dL (13.0-16.5); Mean Corp Hgb Conc 32.7 g/dL (32-36); Mean Corpuscular Hgb 29.8 pg (27.0-32.0); Mean Corpuscular Volume 91.2 fL (80-94); Mean Platelet Vol. 9.5 fl (6.2-12.0); Platelet Count 190 K/mm3 (150-450); RBC Distribution Width CV 13.3 % (11.6-14.6); RBC Distribution Width SD 45.1 fl (35.1-43.9); Red Blood Count 4.33 M/mm3 (4.6-6.2); White Blood Count 5.8 K/mm3 (4.4-11.0)
[2021-05-12 08:34] LABS: ALB/GLOB Ratio 0.8 RATIO (0.9-2.4); AST(SGOT) 24 U/L (15-37); Alanine Aminotransfer ALT/SGPT 11 U/L (16-61); Albumin, Serum 2.6 g/dL (3.2-5.0); Alkaline Phosphatase 90 U/L (45-117); Anion Gap 4 (5-15); BUN 22 mg/dL (7-18); BUN/Creat Ratio 33.4 RATIO (10-20); Calcium,Total 7.8 mg/dL (8.5-10.1); Chloride 109 mmol/L (98-107); Creatinine, Serum 0.66 mg/dL (0.70-1.30); EST Glomerular Filtration Rate 124 mL/min (>60); Est Glom Filt Rate - Afr Amer 150 mL/min (>60); Globulin 3.2 g/dL (2.2-4.2); Glucose 100 mg/dL (74-106); Potassium 3.6 mmol/L (3.5-5.1); Protein, Total 5.8 g/dL (6.4-8.2); Sodium Level 141 mmol/L (136-145)
== END 2021-05-12 23:59 | disposition home or self-care (01) ==
LOC: OLS.DANBUR 04:00
PROVIDERS: PCP Family Medicine
DX: I10 Essential (primary) hypertension (principal); G20 Parkinson's disease; G31.83 Neurocognitive disorder with Lewy bodies; E78.5 Hyperlipidemia, unspecified
CPT/HCPCS: 36415; 80053; 85027

== ENCOUNTER → 2021-06-02 | Outpatient (REF) | payer MEDICARE, SELFPAY ==
[2021-06-02 08:33] LABS: Cholesterol 156 mg/dL (200); High Density Lipoprotein 37 mg/dL; Triglycerides 60 mg/dL; Very Low Density Lipoprotein 12 mg/dL (5-40)
== END | disposition home or self-care (01) ==
LOC: OLS.DANBUR 04:00
PROVIDERS: PCP Family Medicine; Referring Provider Family Medicine; Visit Provider Family Medicine
DX: E78.5 Hyperlipidemia, unspecified (principal)
CPT/HCPCS: 36415; 80061

== ENCOUNTER → 2022-04-30 | Outpatient (REF) | payer MEDICARE, SELFPAY ==
[2022-05-01 08:25] LABS: Color, Urine Yellow (Yellow); Glucose, Dipstick Normal (Normal); Ketone-Dipstick 5 mg/dl (Negative); Leukocyte Esterase-Dipstick 500 /ul (Negative); Nitrite-Dipstick Positive (Negative); Occult Blood-Urine 25 /ul (Negative); Protein-Dipstick 30 mg/dl (Negative); Specific Gravity, Urine 1.015 (1.002-1.030); Urine Bilirubin Dipstick Negative (Negative); Urine Clarity Turbid (Clear); Urine Urobilinogen Normal (Normal)
== END ==
LOC: OLS.DANBUR 11:30
PROVIDERS: PCP Family Medicine
DX: N39.0 Urinary tract infection, site not specified (principal)
CPT/HCPCS: 81002; 87077; 87086; 87088; 87186

== ENCOUNTER → 2022-08-02 | Outpatient (REF) | payer MEDICARE, SELFPAY ==
[2022-08-02 11:12] LABS: Mucous, Urine 0 SEEN /hpf (<or=2+); Squamous Epithelial Cells - UA 0 SEEN /hpf (0-5)
[2022-08-02 11:30] LABS: Color, Urine Yellow (Yellow); Glucose, Dipstick Normal (Normal); Ketone-Dipstick 5 mg/dl (Negative); Leukocyte Esterase-Dipstick 500 /ul (Negative); Nitrite-Dipstick Positive (Negative); Occult Blood-Urine 150 /ul (Negative); Protein-Dipstick 100 mg/dl (Negative); Urine Bilirubin Dipstick Negative (Negative); Urine Clarity Cloudy (Clear); Urine Urobilinogen Normal (Normal)
[2022-08-02 11:50] LABS: Bacteria 3+ /hpf (None Seen); Red Blood Cells-Urine 0-5 SEEN /hpf (0-5); White Blood Cells >100 SEEN /hpf (0-5)
[2022-08-02 11:51] LABS: Triple Phosphate Crystals Ur 1+ /hpf (<or=1+)
== END ==
LOC: OLS.DANBUR 06:00
PROVIDERS: PCP Family Medicine
DX: N39.0 Urinary tract infection, site not specified (principal)
CPT/HCPCS: 81001; 87077; 87086; 87088; 87186